=== PATIENT | female | born 1945 | race Caucasian/White ===

== ENCOUNTER 2024-05-19 06:42 | Emergency (ER) | payer OTHER ==
--- OUTSIDE RECORDS SUMMARY | 2024-05-19 06:48 | XMS REPORT | Continuity of Care Document ---
Author Name Unknown Address [address] [facility] [address] [place] [address] [facility] thconnect Address [address] [facility] [place] [address] Care Team Providers Care Cuff Stitcher Name Role Phone DR AUDRA HENDERSON Attending Clinician DR AUDRA Wells Attending Clinician Mack Vazquez Attending Clinician Carlos Denson Attending Clinician Unavailable COVID Employee, [place] Attending Clinician DR AUDRA Benitez Admitting Clinician Carlos Snider Admitting Clinician Unavailable Payers Payer Name Policy Type Policy Number Effective Date Expirati on Date Source [id number] [id number] 2022 00:00:00 0450 [id number] 1959 00:00:00 0737 [id number] 2022 00:00:00 Problems Condition Name Condition Details Condition Category Status Onset Date Resolution Date Last Treatment Date Treating Clinician Comments Source Fall Problem Active [facility] Allergies, Adverse Reactions, Alerts Allergy Name Allergy Type Status Severity Reaction(s) Onset Date Inactive Date Treating Clinician Comments Source No Allergy Informat ion Availseth e DA Active U 2020-11 0-03 00:00: 00 [facility] Jayla No Allergy Informat ion Availabl e DA Active U 1- 00:00: 00 [facility] Khoi No Known Drug Allergie s DA Active [facility] Social History Social Habit Start Date Stop Date Quantity Comments Source Sex Assigned At 1945 00:00:00 1945 00:00:00 Female [facility] Smoking Status Start Date Stop Date Source Unknown if ever smoked [facility] Medications Ordered Medication Name Filled Medication Name Start Date Stop Date Current Medication? Ordering Clinician Indication Dosage Frequency Signature (SIG) Comments Components Source Gabapentin 2020-11 06:29: 09 08-16 14:18 :35 No 100MG Daily [facility] Vital Signs Vital Name Observation Time Observation Value Comments S ource Height 2022-07-10 20:17:00 152.4 CM Weight 2022-07-10 20:17:00 68.03 KG Height 2022-07-10 20:17:00 152.4 CM Weight 2022-07-10 20:17:00 68.03 KG WEIGHT 2021-08-16 01:54:00 68.950638 kg HEIGHT 2021-08-16 01:54:00 152.4 cm WEIGHT 2021-08-16 01:45:00 68.451273 kg Procedures Procedure Date / Time Performed Performing Clinicia n Source XR Chest 1 View Portable 2021-10-10 08:13:[address] [facility] [address] Cervical Spine WO Con 2021-10-10 08:13:[address] [facility] [address] Pelvis WO Con 2021-10-10 08:13:[address] [facility] [address] Brain WO Con 2021-10-10 08:13:00 [facility] Encounters Start Date/Time End Date/Time Encounter Type Admission Type Attending Clinicians Care Facility Care Department Encounter ID Source 2022-07-10 23:13:00 2022-07-29 16:00:00 Inpatient E AUDRA HENDERSON [facility] [id number] [facility] 2022-07-10 23:13:00 2022-07-29 16:00:00 Inpatient E AUDRA HENDERSON [facility] [id number] [facility] 2021-10-10 08:01:00 2021-10-10 12:05:00 Emergency ER Mack Burris [facility] [id number] [facility] 2021-10-10 08:01:00 2021-10-10 12:05:00 Departed Emergency [id number] [facility] ERS [id number] [facility] 2021-08-15 23:34:00 2021-08-20 19:00:00 Inpatient ER Carlos Mittal [facility] [id number] [facility] 2020-12-25 09:52:00 2020-12-25 09:52:00 Outpatient R COVID Employee, [facility] [id number] [facility] 2020-11-26 10:08:00 2020-11-26 10:08:00 Outpatient R COVID Employee, [facility] [id number] [facility] Results Test Description Test Time Test Comments Results Result Co mments Source GLUCOMETER GLUCOSE- LAB USE [id number] 07:51:00* Test Item Value Reference Range Interpretation Comme nts GLUCOMETER (test code = GMG) 137 mg/dL 70-100 H CLEANED METERMet er ID: [id number]: [id number] [facility] CBC (INCLUDES AUTOMATED DIFFERENTIAL)2022-07-29 06:44:00* Test Item Value Reference Range Interpretation Comme nts WBC (test code = WBC) 6.9 10\\S\\3/uL 4.5-11.0 RBC (test code = RBC) 5.19 10\\S\\6/uL 3.80-5.80 HGB (test code = HBG) 13.9 g/dL 12.0-15.5 HCT (test code = HCT) 42.9 % 35.0-44.0 MCV (test code = MCV) 82.7 fL 81.0-99.0 MCH (test code = MCH) 26.8 pg 27.0-31.0 L MCHC (test code = MCHC) 32.4 g/dL 32.0-36.0 RDW (test code = RDW) 14.0 % 11.5-14.5 PLT (test code = PLT) 146 10\\S\\3/uL 130-400 MPV (test code = MPV) 10.9 fL 9.4-12.4 NEUTROP # (test code = NE#) 4.5 10\\S\\3/uL 1.6-8.0 LYMPH # (test code = LY#) 1.5 10\\S\\3/uL 1.1-3.5 MONOCYTE # (test code = MO#) 0.7 10\\S\\3/uL 0.0-1.1 EOSINOPH # (test code = EO#) 0.2 10\\S\\3/uL 0.0-0.7 BASOPHIL # (test code = BA#) 0.0 10\\S\\3/uL 0.0-0.3 IG # (test code = IG#) 0.01 10\\S\\3/uL 0.00-0.06 NRBC # (test code = NRBC#) 0.00 10\\S\\3/uL 0.00-0.01 NEUTROPH % (test code = NE%) 65.3 % 35.0-73.0 LYMPH % (test code = LY%) 21.6 % 20.0-55.0 MONO % (test code = MO%) 9.9 % 2.5-10.0 EOSINOPH % (test code = EO%) 3.1 % 0.0-5.0 BASOPHIL % (test code = BA%) 0.0 % 0.0-2.0 IG % (test code = IG%) 0.1 % 0.0-0.8 NRBC% (test code = NRBC%) 0.0 % 0.0-0.2 MANDIFF (test code = MDIFF) NO RBC MORPH (test code = RBCMOR) NORMAL COMPREHENSIVE METABOLIC [id number] 06:42:00* Test Item Value Reference Range Interpretation Comme nts GLUCOSE (test code = 06D) 137 mg/dL 75-100 H SODIUM (test code = 01A) 144 mmol/L 136-145 POTASSIUM (test code = 01B) 4.4 mmol/L 3.6-5.1 CHLORIDE (test code = 04A) 105 mmol/L 98-107 CO2 (test code = 02A) 29 mmol/L 20-31 ANION GAP (test code = ANG) 14.4 mmol/L BUN (test code = 05D) 21 mg/dL 9-23 CREATININE (test code = 03E) 0.9 mg/dL 0.6-1.0 GFR (test code = GFR) 62 mL/min/1.73m\\S\\2 See_Comment L [Automated message] The system which generated this result transmitted reference range: >=90. The reference range was not used to interpret this result as normal/abnormal. GFR (test code = GFRAA) 72 mL/min/1.73m\\S\\2 See_Comment L [Automated message] The system which generated this result transmitted reference range: >=90. The reference range was not used to interpret this result as normal/abnormal. EGFR (test code = EGFR) eGFR BY CKD-EPI CALCULATION IS NOT RECOMMENDED FOR PATIENTS UNDER 18 YEARS OF AGE. BUN/CREA (test code = BCR) 23 12-20 H CALCIUM (test code = 09D) 8.6 mg/dL 8.3-10.6 BILI TOTAL (test code = 11A) 0.4 mg/dL 0.2-1.0 PROTEIN (test code = 07D) 6.5 g/dL 5.7-8.2 ALBUMIN (test code = 08D) 4.2 g/dL 3.2-4.8 GLOBULIN (test code = GLB) 2.3 g/dL 1.5-3.8 ALB/GLOB (test code = AGRR) 1.8 1.0-2.6 ALK PHOS (test code = 35A) 76 IU/L 46-116 AST (test code = 30A) 20 IU/L See_Comment [Automated message] The system which generated this result transmitted reference range: <=33. The reference range was not used to interpret this result as normal/abnormal. ALT (test code = 31A) 21 IU/L 10-49 GLUCOMETER GLUCOSE- LAB USE [id number] 18:57:00* Test Item Value Reference Range Interpretation Comme nts GLUCOMETER (test code = GMG) 247 mg/dL 70-100 H CLEANED METERMet er ID: [id number]: 1235 TREMAINE MAICOL SARS-CoV (RAPID ANTIGEN)2022-07-28 18:24:00* Test Item Value Reference Range Interpretation Comme nts SARS-CoV (ANTIGEN) (test code = COVAG) NEGATIVE NEGATIVE COVID AG (test code = COVAGC) This test has been marketed under the FDA Emergency Use Authorization (EUA) to meet challenges of the COVID-19 pandemic. The validation standards normally enforced by the FDA and the [employer] of the [employer] (CAP) are more stringent than those required for this test. Therefore, the result should be interpreted with caution and close attention to other clinical and epidemiological data GLUCOMETER GLUCOSE- LAB USE [id number] 16:33:00* Test Item Value Reference Range Interpretation Comme nts GLUCOMETER (test code = GMG) 140 mg/dL 70-100 H CLEANED METERMet er ID: [id number]: 3912 FRANCOIS BURK GLUCOMETER GLUCOSE- LAB USE [id number] 11:28:00* Test Item Value Reference Range Interpretation Comme nts GLUCOMETER (test code = GMG) 129 mg/dL 70-100 H CLEANED METERMet er ID: [id number]: 4622 NAHEDRosa M CHARLES GLUCOMETER GLUCOSE- LAB USE [id number] 07:26:00* Test Item Value Reference Range Interpretation Comme nts GLUCOMETER (test code = GMG) 136 mg/dL 70-100 H Meter ID: [id number]: 6680 ADILENE AMBRIZ GLUCOMETER GLUCOSE- LAB USE [id number] 19:19:00* Test Item Value Reference Range Interpretation Comme nts GLUCOMETER (test code = GMG) 187 mg/dL 70-100 H CLEANED METERMet er ID: [id number]: 3831 ROGE OSBORNE GLUCOMETER GLUCOSE- LAB USE [id number] 16:34:00* Test Item Value Reference Range Interpretation Comme nts GLUCOMETER (test code = GMG) 134 mg/dL 70-100 H Meter ID: [id number]: 6680 ADILENE PB GLUCOMETER GLUCOSE- LAB USE [id number] 16:34:00* Test Item Value Reference Range Interpretation Comme nts GLUCOMETER (test code = GMG) 109 mg/dL 70-100 H CLEANED METERMet er ID: [id number]: 8413 JUAN DAVIDDIREVO [employer] GLUCOMETER GLUCOSE- LAB USE [id number] 07:50:00* Test Item Value Reference Range Interpretation Comme nts GLUCOMETER (test code = GMG) 139 mg/dL 70-100 H Meter ID: [id number]: 6680 [facility] GLU[facility]- LAB USE [id number] 00:19:00* Test Item Value Reference Range Interpretation Comme nts GLUCOMETER (test code = GMG) 214 mg/dL 70-100 H CLEANED METERMet er ID: [id number]: 1235 TREMAINE MAICOL GLUCOMETER GLUCOSE- LAB USE [id number] 00:19:00* Test Item Value Reference Range Interpretation Comme nts GLUCOMETER (test code = GMG) 158 mg/dL 70-100 H CLEANED METERMet er ID: [id number]: 3912 FRANCOIS RIVERAIGHT GLUCOMETER GLUCOSE- LAB USE [id number] 12:19:00* Test Item Value Reference Range Interpretation Comme nts GLUCOMETER (test code = GMG) 138 mg/dL 70-100 H CLEANED METERMet er ID: [id number]: 8413 JUAN DAVIDDIREVO [employer] GLUCOMETER GLUCOSE- LAB USE [id number] 07:44:00* Test Item Value Reference Range Interpretation Comme nts GLUCOMETER (test code = GMG) 114 mg/dL 70-100 H CLEANED METERMet er ID: [id number]: 8413 JUAN DAVID RANGEL GLUCOMETER GLUCOSE- LAB USE [id number] 19:15:00* Test Item Value Reference Range Interpretation Comme nts GLUCOMETER (test code = GMG) 258 mg/dL 70-100 H Meter ID: [id number]: 3883 ADAMS WANG GLUCOMETER GLUCOSE- LAB USE [id number] 16:21:00* Test Item Value Reference Range Interpretation Comme nts GLUCOMETER (test code = GMG) 145 mg/dL 70-100 H CLEANED METERMet er ID: [id number]: 4622 NAHED BREASTON GLUCOMETER GLUCOSE- LAB USE [id number] 11:01:00* Test Item Value Reference Range Interpretation Comme nts GLUCOMETER (test code = GMG) 151 mg/dL 70-100 H CLEANED METERMet er ID: [id number]: 4622 NAHED BREASTON GLUCOMETER GLUCOSE- LAB USE [id number] 08:25:00* Test Item Value Reference Range Interpretation Comme nts GLUCOMETER (test code = GMG) 130 mg/dL 70-100 H CLEANED METERMet er ID: [id number]: 4622 NAHED BREASTON GLUCOMETER GLUCOSE- LAB USE [id number] 20:45:00* Test Item Value Reference Range Interpretation Comme nts GLUCOMETER (test code = GMG) 242 mg/dL 70-100 H Meter ID: [id number]: 1235 TREMAINE MAICOL GLUCOMETER GLUCOSE- LAB USE [id number] 18:06:00* Test Item Value Reference Range Interpretation Comme nts GLUCOMETER (test code = GMG) 213 mg/dL 70-100 H Meter ID: [id number]: 4461 SYED BEEBE GLUCOMETER GLUCOSE- LAB USE [id number] 11:49:00* Test Item Value Reference Range Interpretation Comme nts GLUCOMETER (test code = GMG) 191 mg/dL 70-100 H CLEANED METERMet er ID: [id number]: 9397 LUNA LEVY GLUCOMETER GLUCOSE- LAB USE [id number] 07:39:00* Test Item Value Reference Range Interpretation Comme nts GLUCOMETER (test code = GMG) 140 mg/dL 70-100 H Meter ID: [id number]: 4461 SYED BONNERSON GLUCOMETER GLUCOSE- LAB USE [id number] 19:35:00* Test Item Value Reference Range Interpretation Comme nts GLUCOMETER (test code = GMG) 180 mg/dL 70-100 H CLEANED METERMet er ID: [id number]: 5538 YANNA ZAHIDA GLUCOMETER GLUCOSE- LAB USE [id number] 17:11:00* Test Item Value Reference Range Interpretation Comme nts GLUCOMETER (test code = GMG) 135 mg/dL 70-100 H CLEANED METERMet er ID: [id number]: 1235 TREMAINE MAICOL GLUCOMETER GLUCOSE- LAB USE [id number] 14:54:00* Test Item Value Reference Range Interpretation Comme nts GLUCOMETER (test code = GMG) 161 mg/dL 70-100 H CLEANED METERMet er ID: [id number]: 1235 TREMAINE MAICOL GLUCOMETER GLUCOSE- LAB USE [id number] 14:54:00* Test Item Value Reference Range Interpretation Comme nts GLUCOMETER (test code = GMG) 150 mg/dL 70-100 H Meter ID: [id number]: 4461 SYED BEEBE GLUCOMETER GLUCOSE- LAB USE [id number] 14:53:00* Test Item Value Reference Range Interpretation Comme nts GLUCOMETER (test code = GMG) 252 mg/dL 70-100 H CLEANED METERMet er ID: [id number]: 3549 SYLVESTER MAYOYO GLUCOMETER GLUCOSE- LAB USE [id number] 14:53:00* Test Item Value Reference Range Interpretation Comme nts GLUCOMETER (test code = GMG) 188 mg/dL 70-100 H CLEANED METERMet er ID: [id number]: 8605 ML BATTLES GLUCOMETER GLUCOSE- LAB USE [id number] 14:53:00* Test Item Value Reference Range Interpretation Comme nts GLUCOMETER (test code = GMG) 197 mg/dL 70-100 H Meter ID: [id number]: 8413 JUAN DAVID RANGEL GLUCOMETER GLUCOSE- LAB USE [id number] 14:52:00* Test Item Value Reference Range Interpretation Comme nts GLUCOMETER (test code = GMG) 137 mg/dL 70-100 H Meter ID: [id number]: 4461 SYED BEEBE GLUCOMETER GLUCOSE- LAB USE [id number] 14:52:00* Test Item Value Reference Range Interpretation Comme nts GLUCOMETER (test code = GMG) 168 mg/dL 70-100 H CLEANED METERMet er ID: [id number]: 1235 TREMAINE MAICOL GLUCOMETER GLUCOSE- LAB USE [id number] 14:52:00* Test Item Value Reference Range Interpretation Comme nts GLUCOMETER (test code = GMG) 178 mg/dL 70-100 H CLEANED METERMet er ID: [id number]: 8605 ML BATTLES GLUCOMETER GLUCOSE- LAB USE [id number] 14:51:00* Test Item Value Reference Range Interpretation Comme nts GLUCOMETER (test code = GMG) 155 mg/dL 70-100 H CLEANED METERMet er ID: [id number]: 6771 [employer] GLUCOMETER GLUCOSE- LAB USE [id number] 14:51:00* Test Item Value Reference Range Interpretation Comme nts GLUCOMETER (test code = GMG) 133 mg/dL 70-100 H CLEANED METERMet er ID: [id number]: 8605 ML BATTLES GLUCOMETER GLUCOSE- LAB USE [id number] 14:51:00* Test Item Value Reference Range Interpretation Comme nts GLUCOMETER (test code = GMG) 227 mg/dL 70-100 H CLEANED METERMet er ID: [id number]: 5538 [facility] ZAHIDA GLUCOMETER GLUCOSE- LAB USE [id number] 14:50:00* Test Item Value Reference Range Interpretation Comme nts GLUCOMETER (test code = GMG) 158 mg/dL 70-100 H CLEANED METERMet er ID: [id number]: 8413 JUAN DAVIDDIREVO [employer] GLUCOMETER GLUCOSE- LAB USE [id number] 14:50:00* Test Item Value Reference Range Interpretation Comme nts GLUCOMETER (test code = GMG) 180 mg/dL 70-100 H CLEANED METERMet er ID: [id number]: 8413 JUAN DAVID RANGEL GLUCOMETER GLUCOSE- LAB USE [id number] 14:49:00* Test Item Value Reference Range Interpretation Comme nts GLUCOMETER (test code = GMG) 106 mg/dL 70-100 H CLEANED METERMet er ID: [id number]: 6771 JERICA [employer] GLUCOMETER GLUCOSE- LAB USE [id number] 14:49:00* Test Item Value Reference Range Interpretation Comme nts GLUCOMETER (test code = GMG) 209 mg/dL 70-100 H CLEANED METERMet er ID: [id number]: 1235 TREMAINE MAICOL GLUCOMETER GLUCOSE- LAB USE [id number] 14:48:00* Test Item Value Reference Range Interpretation Comme nts GLUCOMETER (test code = GMG) 138 mg/dL 70-100 H CLEANED METERMet er ID: [id number]: 8413 JUAN DAVID [employer] GLUCOMETER GLUCOSE- LAB USE [id number] 14:48:00* Test Item Value Reference Range Interpretation Comme nts GLUCOMETER (test code = GMG) 266 mg/dL 70-100 H CLEANED METERMet er ID: [id number]: 5538 TARECIA ZAHIDA GLUCOMETER GLUCOSE- LAB USE [id number] 14:47:00* Test Item Value Reference Range Interpretation Comme nts GLUCOMETER (test code = GMG) 142 mg/dL 70-100 H CLEANED METERMet er ID: [id number]: 5538 TARECIA ZAHIDA GLUCOMETER GLUCOSE- LAB USE [id number] 14:46:00* Test Item Value Reference Range Interpretation Comme nts GLUCOMETER (test code = GMG) 183 mg/dL 70-100 H Meter ID: [id number]: 4461 SYED BEEBE GLUCOMETER GLUCOSE- LAB USE [id number] 14:46:00* Test Item Value Reference Range Interpretation Comme nts GLUCOMETER (test code = GMG) 267 mg/dL 70-100 H CLEANED METERMet er ID: [id number]: 6771 [facility] GLUCOSE- LAB USE [id number] 14:46:00* Test Item Value Reference Range Interpretation Comme nts GLUCOMETER (test code = GMG) 143 mg/dL 70-100 H Meter ID: [id number]: 4461 SYED BEEBE GLUCOMETER GLUCOSE- LAB USE [id number] 14:45:00* Test Item Value Reference Range Interpretation Comme nts GLUCOMETER (test code = GMG) 253 mg/dL 70-100 H CLEANED METERMet er ID: [id number]: 3831 ROGE [place] GLUCOMETER GLUCOSE- LAB USE [id number] 14:45:00* Test Item Value Reference Range Interpretation Comme nts GLUCOMETER (test code = GMG) 184 mg/dL 70-100 H CLEANED METERMet er ID: [id number]: 8605 ML BATTLES GLUCOMETER GLUCOSE- LAB USE [id number] 14:44:00* Test Item Value Reference Range Interpretation Comme nts GLUCOMETER (test code = GMG) 190 mg/dL 70-100 H Meter ID: [id number]: 4461 SYED BEEBE GLUCOMETER GLUCOSE- LAB USE [id number] 14:44:00* Test Item Value Reference Range Interpretation Comme nts GLUCOMETER (test code = GMG) 138 mg/dL 70-100 H Meter ID: [id number]: 3912 FRANCOIS VALDEZKNIGHT GLUCOMETER GLUCOSE- LAB USE [id number] 14:44:00* Test Item Value Reference Range Interpretation Comme nts GLUCOMETER (test code = GMG) 231 mg/dL 70-100 H CLEANED METERMet er ID: [id number]: 3831 ROGE [place]NE GLUCOMETER GLUCOSE- LAB USE [id number] 14:43:00* Test Item Value Reference Range Interpretation Comme nts GLUCOMETER (test code = GMG) 145 mg/dL 70-100 H Meter ID: [id number]: 4461 SYED BEEBE GLUCOMETER GLUCOSE- LAB USE [id number] 14:43:00* Test Item Value Reference Range Interpretation Comme nts GLUCOMETER (test code = GMG) 126 mg/dL 70-100 H CLEANED METERMet er ID: [id number]: 8605 ML BATTLES GLUCOMETER GLUCOSE- LAB USE [id number] 14:43:00* Test Item Value Reference Range Interpretation Comme nts GLUCOMETER (test code = GMG) 119 mg/dL 70-100 H CLEANED METERMet er ID: [id number]: 8605 ML BATTLES GLUCOMETER GLUCOSE- LAB USE [id number] 14:42:00* Test Item Value Reference Range Interpretation Comme nts GLUCOMETER (test code = GMG) 246 mg/dL 70-100 H CLEANED METERMet er ID: [id number]: 1235 TREMAINE MILIAN GLUCOMETER GLUCOSE- LAB USE [id number] 07:33:00* Test Item Value Reference Range Interpretation Comme nts GLUCOMETER (test code = GMG) 135 mg/dL 70-100 H Meter ID: [id number]: 4461 SYED BEEBE GLUCOMETER GLUCOSE- LAB USE [id number] 11:19:00* Test Item Value Reference Range Interpretation Comme nts GLUCOMETER (test code = GMG) 131 mg/dL 70-100 H Meter ID: [id number]: 6680 ADILENE MARTEFIELD GLUCOMETER GLUCOSE- LAB USE [id number] 07:58:00* Test Item Value Reference Range Interpretation Comme nts GLUCOMETER (test code = GMG) 117 mg/dL 70-100 H CLEANED METERMet er ID: [id number]: 8413 JUAN DAVID RANGEL GLUCOMETER GLUCOSE- LAB USE [id number] 19:19:00* Test Item Value Reference Range Interpretation Comme nts GLUCOMETER (test code = GMG) 246 mg/dL 70-100 H CLEANED METERMet er ID: [id number]: 8913 JADE NANCY GLUCOMETER GLUCOSE- LAB USE [id number] 16:16:00* Test Item Value Reference Range Interpretation Comme nts GLUCOMETER (test code = GMG) 183 mg/dL 70-100 H CLEANED METERMet er ID: [id number]: 6771 JERICA [employer] GLUCOMETER GLUCOSE- LAB USE [id number] 11:22:00* Test Item Value Reference Range Interpretation Comme nts GLUCOMETER (test code = GMG) 130 mg/dL 70-100 H CLEANED METERMet er ID: [id number]: 6771 JERICA [employer] GLUCOMETER GLUCOSE- LAB USE [id number] 08:06:00* Test Item Value Reference Range Interpretation Comme nts GLUCOMETER (test code = GMG) 133 mg/dL 70-100 H CLEANED METERMet er ID: [id number]: 6771 JERICA [employer] GLUCOMETER GLUCOSE- LAB USE [id number] 19:07:00* Test Item Value Reference Range Interpretation Comme nts GLUCOMETER (test code = GMG) 179 mg/dL 70-100 H Meter ID: [id number]: 1232 REX LUDWIG URINE [id number] 10:32:00* Test Item Value Reference Range Interpretation Comme nts Culture Observations (test code = COB1) THREE OR MORE SPECIES OF BACTERIA ISOLATED. PROBABLE CONTAMINATION. Culture Observations (test code = COB17) IDENTIFICATION AND SUSCEPTIBILITY NOT INDICATED. RECOLLECTION RECOMMENDED B12 [id number] 05:41:00* Test Item Value Reference Range Interpretation Comme nts VIT B12 (test code = A60) 272.0 pg/mL 211.0-911.0 [id number] 01:18:00* Test Item Value Reference Range Interpretation [facility]me [facility] FOLATE (test code = A75) 16.4 ng/mL See_Comment [Automated Novitaz] The system which generated this result transmitted reference range: >=5.5. The reference range was not used to interpret this result as normal/abnormal. THYROID PANEL/SCREEN (TSH)2022-07-11 01:17:00* Test Item Value Reference Range Interpretation Comme [facility] TSH (test code = A57) 0.784 uIU/mL 0.550-4.780 [id number] 01:07:00* Test Item Value Reference Range [facility]ation [facility] (test code = 08E) 28 mg/dL 10-40 LIPID [id number] 01:01:00* Test Item Value Reference Range Interpretation Comme [facility] CHOLESTROL (test code = 44A) 175 mg/dL 140-200 TRIGLYCERI (test code = 42B) 156 mg/dL See_Comment H [Automated Novitaz] The system which generated this result transmitted reference range: <=149. The reference range was not used to interpret this result as normal/abnormal. HDL (test code = 83D) 39.9 mg/dL 40.0-60.0 L LDL (test code = 34B) 116 mg/dL See_Comment H [A utomated message] The system which generated this result transmitted reference range: <=99. The reference range was not used to interpret this result as normal/abnormal. CHL/HDL (test code = CHR) 4.4 0.0-3.4 H [id number] 01:01:00* Test Item Value Reference Range Interpretation Comme nts MAGNESIUM (test code = 48A) 1.7 mg/dL 1.6-2.6 [id number] 01:00:00* Test Item Value Reference Range Interpretation Comme nts Hb A1C % (test code = HBA) 6.7 % 3.8-6.4 H A1C % (test code = A1C) HbA1c (% ) Reference Range Normal <5.7 Prediabetes 5.7-6.4 Diabetic >=6.5 [id number] 21:36:00* Test Item Value Reference Range Interpretation Comme nts SALICYLATE (test code = 94B) <3.0 mg/dL 15.0-30.[address] HEAD W/O [id number] 21:22:53 [facility] : 1945 Sex: FCT head without contrast 2CLINICAL HISTORY: Altered mental statusTECHNIQUE: Axial noncontrast CT images through the head were obtained. This examination was performed according to our departmental dose optimization program, which includes automated exposure control, adjustment of the mA and/or kV according to patient size, and/or use of iterative reconstruction technique.COMPARISON: None availableLOCATION: [id number]:There is no hemorrhage, extra-axial collection, mass, hydrocephalus, or midline shift. There are rare chronic-appearing microvascular changes. There is atherosclerotic calcification of the intracranial arterial vasculature. There is generalized parenchymal volume loss. The visualized paranasal sinuses and mastoid air cells are well aerated. There is a remote right frontal carlin hole.IMPRESSION:No intracranial hemorrhage or mass effect.If concern for acute pathology persists, further evaluation with MRI is recommended. Electronically signed by: Jhonny Summers MD 07/10/2022 9:22 PM CDT -XjG (RAPID ANTIGEN)2022-07-10 21:21:00* Test Item Value Reference Range Interpretation Comme nts SARS-CoV (ANTIGEN) (test code = COVAG) NEGATIVE NEGATIVE COVID AG (test code = COVAGC) This test has been marketed under the FDA Emergency Use Authorization (EUA) to meet challenges of the COVID-19 pandemic. The validation standards normally enforced by the FDA and the [employer] the [employer] ([employer]) are more stringent than those required for this test. Therefore, the result should be interpreted with caution and close attention to other clinical and epidemiological data COMPREHENSIVE METABOLIC [id number] 21:13:00* Test Item Value Reference Range Interpretation Comme nts GLUCOSE (test code = 06D) 163 mg/dL 75-100 H SODIUM (test code = 01A) 142 mmol/L 136-145 POTASSIUM (test code = 01B) 4.8 mmol/L 3.6-5.1 CHLORIDE (test code = 04A) 107 mmol/L 98-107 CO2 (test code = 02A) 28 mmol/L 20-31 ANION GAP (test code = ANG) 11.8 mmol/L BUN (test code = 05D) 19 mg/dL 9-23 CREATININE (test code = 03E) 1.0 mg/dL 0.6-1.0 GFR (test code = GFR) 55 mL/min/1.73m\\S\\2 See_Comment L [Automated message] The system which generated this result transmitted reference range: >=90. The reference range was not used to interpret this result as normal/abnormal. GFR (test code = GFRAA) 63 mL/min/1.73m\\S\\2 See_Comment L [Automated message] The system which generated this result transmitted reference range: >=90. The reference range was not used to interpret this result as normal/abnormal. EGFR (test code = EGFR) eGFR BY CKD-EPI CALCULATION IS NOT RECOMMENDED FOR PATIENTS UNDER 18 YEARS OF AGE. BUN/CREA (test code = BCR) 19 12-20 CALCIUM (test code = 09D) 8.9 mg/dL 8.3-10.6 BILI TOTAL (test code = 11A) 0.2 mg/dL 0.2-1.0 PROTEIN (test code = 07D) 6.7 g/dL 5.7-8.2 ALBUMIN (test code = 08D) 4.5 g/dL 3.2-4.8 GLOBULIN (test code = GLB) 2.2 g/dL 1.5-3.8 ALB/GLOB (test code = AGRR) 2.0 1.0-2.6 ALK PHOS (test code = 35A) 72 IU/L 46-116 AST (test code = 30A) 21 IU/L See_Comment [Automated message] The system which generated this result transmitted reference range: <=33. The reference range was not used to interpret this result as normal/abnormal. ALT (test code = 31A) 19 IU/L 10-49 AMYLASE AND [id number] 21:13:00* Test Item Value Reference Range Interpretation Comme nts AMYLASE (test code = 10A) 106 U/L 30-118 LIPASE (test code = 60A) 40 IU/L 12-53 [id number] 21:13:00* Test Item Value Reference Range Interpretation Comme nts ACETAMINPH (test code = 94M) <0.2 mg/dL 1.2-2.5 L AMMONIA [id number] 21:13:00* Test Item Value Reference Range Interpretation Comme nts AMMONIA (test code = 54A) <10 umol/L 11-32 L ALCOHOL BLOOD (ETOH)2022-07-10 21:10:00* Test Item Value Reference Range Interpretation Comme nts ETOH (test code = HALC) ETHANOL The result is to be used only for medical purposes ALCOHOL (test code = 56A) <10 mg/dL See_Comment [Automated messa ge] The system which generated this result transmitted reference range: <=10. The reference range was not used to interpret this result as normal/abnormal. URINALYSIS WITH [id number] 21:06:00* Test Item Value Reference Range Interpretation Comme nts COLOR (test code = COLU) YELLOW YELLOW CLARITY (test code = CLA) CLOUDY CLEAR A GLUCOSE UR (test code = UA GLUCOSE) NEGATIVE NEGATIVE BILI UR (test code = BILE) NEGATIVE NEGATIVE KETONES UR (test code = PB) NEGATIVE NEGATIVE SP GRAVITY (test code = SPGR) 1.018 1.005-1.030 PH UR (test code = PH) 6.0 4.5-8.0 PROTEIN UR (test code = PU) NEGATIVE NEGATIVE UROBIL UR (test code = UROQ) 0.2 EU/dL 0.2-1.0 NITRITE UR (test code = NITRITE) NEGATIVE NEGATIVE BLOOD UR (test code = UA BLOOD) NEGATIVE NEGATIVE LEUK ES UR (test code = LEUK) 2+ NEGATIVE A WBC UR (test code = UWBC) 11 /HPF 0-5 H RBC UR (test code = URBC) 0 /HPF 0-2 EPITH UR (test code = UEPC) FEW /LPF FEW BACTERIA UR (test code = UBACT) NONE /HPF NONE CAST UR (test code = CAST) /LPF NONE CRYSTAL UR (test code = CRYU) / LPF NONE MUCUS UR (test code = MUC) / HPF NONE AMORPH UR (test code = ALONSO) / HPF NONE TRICH UR (test code = UTRICH) /HPF NONE YEAST UR (test code = UY) /HPF NONE SPERM UR (test code = USPERM) /HPF NONE DRUGS OF [id number] 20:56:00* Test Item Value Reference Range Interpretation Comme nts DRUG SCRN (test code = HDOA) URINE DRUG SCREEN This is an unconfirmed screening result and should not be used for non-medical purposes CANNABINOD (test code = 88C) NEGATIVE NEGATIVE AMPHETAMINE (test code = 84A) NEGATIVE NEGATIVE BENZODIAZP (test code = 86A) NEGATIVE NEGATIVE BARBITURAT (test code = 85A) NEGATIVE NEGATIVE OPIATES (test code = 92B) NEGATIVE NEGATIVE COCAINE (test code = 87A) NEGATIVE NEGATIVE PHENCYCLID (test code = 66A) NEGATIVE NEGATIVE METHADONE (test code = 64A) NEGATIVE NEGATIVE DOAH (test code = DOAH.) URINE DRUGSCREEN Cut-off values are as follows: Cannabinoids 50 ng/mL Cocaine 300 ng/mL Amphetamines 1000 ng/mL Phencyclidine 25 ng/mL Benzodiazepines 200 ng.mL Methadone 300 ng/mL Barbiturates 200 ng/mL Opiates 300 ng/mL CBC (INCLUDES AUTOMATED DIFFERENTIAL)2022-07-10 20:52:00* Test Item Value Reference Range Interpretation Comme nts WBC (test code = WBC) 7.3 10\\S\\3/uL 4.5-11.0 RBC (test code = RBC) 5.00 10\\S\\6/uL 3.80-5.80 HGB (test code = HBG) 13.6 g/dL 12.0-15.5 HCT (test code = HCT) 40.7 % 35.0-44.0 MCV (test code = MCV) 81.4 fL 81.0-99.0 MCH (test code = MCH) 27.2 pg 27.0-31.0 MCHC (test code = MCHC) 33.4 g/dL 32.0-36.0 RDW (test code = RDW) 14.6 % 11.5-14.5 H PLT (test code = PLT) 157 10\\S\\3/uL 130-400 MPV (test code = MPV) 11.1 fL 9.4-12.4 NEUTROP # (test code = NE#) 4.5 10\\S\\3/uL 1.6-8.0 LYMPH # (test code = LY#) 1.9 10\\S\\3/uL 1.1-3.5 MONOCYTE # (test code = MO#) 0.7 10\\S\\3/uL 0.0-1.1 EOSINOPH # (test code = EO#) 0.2 10\\S\\3/uL 0.0-0.7 BASOPHIL # (test code = BA#) 0.0 10\\S\\3/uL 0.0-0.3 IG # (test code = IG#) 0.02 10\\S\\3/uL 0.00-0.06 NRBC # (test code = NRBC#) 0.00 10\\S\\3/uL 0.00-0.01 NEUTROPH % (test code = NE%) 61.0 % 35.0-73.0 LYMPH % (test code = LY%) 26.2 % 20.0-55.0 MONO % (test code = MO%) 10.2 % 2.5-10.0 H EOSINOPH % (test code = EO%) 2.2 % 0.0-5.0 BASOPHIL % (test code = BA%) 0.1 % 0.0-2.0 IG % (test code = IG%) 0.3 % 0.0-0.8 NRBC% (test code = NRBC%) 0.0 % 0.0-0.2 MANDIFF (test code = MDIFF) NO RBC MORPH (test code = RBCMOR) NORMAL XR CHEST 1 VIEW [id number] 20:02:50 [facility] : 1945 Sex: FEXAM: XR CHEST 1 VIEWLOCATION: [id number]: Psychotic disorderTECHNIQUE: AP view of the chestCOMPARISON: None available.FINDINGS:Midline sternotomy wires and mediastinal surgical clips are present.The trachea appears normal. The mediastinum and cardiac silhouette are within normal limits for size.Elevated right hemidiaphragm noted. Minimal atelectasis seen at the left lung base. No pleural effusions.The visualized upper abdomen and peripheral soft tissues are grossly unremarkable.IMPRESSION:No acute cardiopulmonary process.Electronically signed by: Abdielbindu Yeager DO 07/10/2022 8:02 PM CDT [id number] 08:36:00* Test Item Value Reference Range Interpretation Comme nts Chemistry (test code = NA-T) 140 mmol/L 136-145 N Chemistry (test code = K-T) 4.1 mmol/L 3.5-5.1 N Chemistry (test code = CL) 105 mmol/L 98-107 N Chemistry (test code = CO2) 25 mmol/L 23-31 N Chemistry (test code = ANGP) 14 mmol/L 10-20 N Chemistry (test code = BUN) 26 mg/dL 9.8-20.1 H Chemistry (test code = CREATT) 0.99 mg/dL 0.6-1.1 N Chemistry (test code = EGFRMDRD) 55 Reference Range for Estimated GFR: Greater than 90 mL/min/1.73 m2NOTE:The MDRD equation has not been validated for use with theelderly (over 70 years of age), women, patientswith serious comorbid condition or persons with extremes ofbody size, muscle mass, or nutritional status. Chemistry (test code = GLU-T) 113 mg/dL 83-110 H Chemistry (test code = CA) 8.8 mg/dL 7.8-10.44 N Chemistry (test code = TBILI-T) 0.7 mg/dL 0.2-1.2 N Chemistry (test code = TP) 6.9 g/dL 5.8-8.1 N Chemistry (test code = ALB) 4.0 g/dL 3.4-4.8 N Chemistry (test code = GLOB) 2.9 g/dL 2.4-3.5 N Chemistry (test code = AG) 1.4 g/dL 1.2-2.2 N Chemistry (test code = ALP) 59 U/L 40-110 N Chemistry (test code = AST) 22 U/L 5-34 N Chemistry (test code = ALT) 19 U/L 8-55 N [id number] 08:36:00* Test Item Value Reference Range Interpretation Comme nts Chemistry (test code = TROPI-R) Less than 0.010 ng/mL < 0.028 * Reference Range 0.00 - 0.028 ng/mL Negative 0.029 - 0.29 ng/mL Indeterminate Greater or Equal to 0.3 ng/mL Strongly suggests [facility] [id number] 08:28:00* Test Item Value Reference Range [facility]ation [facility] (test code = PT-T) 13.9 sec 12.0-14.7 N Coagulation (test code = INR) 1.1 ATTENTION: READ CAREFULLY The recommended therapeutic ranges for oral anticoagulanttreatments are: ------ Low Intensity: 1.5 - 2.0 Moderate Intensity: 2.0 - 3.0 High Intensity (1): 2.5 - 3.5 High Intensity (2): 3.0 - 4.0 CRITICAL: > 4.0 Anticoagulant? NONEMedical Necessity SUSPECT COAGULOPATHYAnticoagulant? NONEMedical Necessity: [id number] 08:28:00* Test Item Value Reference Range Interpretation [facility] Co[facility] (test code = PTT) 28.7 sec 22.9-36.1 N Anticoagulant? NONEMedical Necessity SUSPECT COAGULOPATHYAnticoagulant? NONEMedical Necessity: [id number] 08:23:00* Test Item Value Reference Range Interpretation [facility] H[facility]ology (test code = WBCT) 5.5 thou/uL 4.8-10.8 N Hematology (test code = RBCT) 4.83 mill/uL 4.20-5.40 N Hematology (test code = HGBT) 13.3 g/dL 12.0-16.0 N Hematology (test code = HCTT) 42.3 % 36.0-47.0 N Hematology (test code = MCV) 87.6 fL 78.0-98.0 N Hematology (test code = MCH) 27.7 pg 27.0-31.0 N Hematology (test code = MCHC) 31.6 g/dL 32.0-36.0 L Hematology (test code = RDW) 13.0 % 11.5-14.5 N Hematology (test code = PLTT) 143 thou/uL 130-400 N Hematology (test code = MPV) 7.8 fL 7.4-10.4 N Hematology (test code = %NEUT) 68.4 % 42.0-75.0 N Hematology (test code = %LYMPH) 20.1 % 21.0-51.0 L Hematology (test code = %MONO) 9.4 % 0.0-10.0 N Hematology (test code = %EOS) 1.6 % 0.0-10.0 N Hematology (test code = %BASO) 0.5 % 0.0-1.0 N Hematology (test code = NEUT#) 3.8 thou/uL 1.40-6.50 N Hematology (test code = LYMPH#) 1.1 thou/uL 1.20-3.40 L Hematology (test code = MONO#) 0.5 thou/uL 0.11-0.59 N Hematology (test code = EOS#) 0.1 thou/uL 0.0-0.7 N Hematology (test code = BASO#) 0.0 thou/uL 0.0-0.2 N Serum or plasma sodium measurement (moles/volume)2021-10-10 08:14:00* Test Item Value Reference Range Interpretation [facility] Sodium Level (test code = 2951-2) 140 mmol/L 136-145 [facility] or plasma potassium measurement (moles/volume) 2021-10-10 08:14:00* Test Item Value Reference Range Interpretation Comme nts Potassium Level (test code = 2823-3) 4.1 mmol/L 3.5-5.1 [facility] or plasma chloride measurement (moles/volume) 2021-10-10 08:14:00* Test Item Value Reference Range Interpretation [facility] Chloride Level (test code = 2075-0) 105 mmol/L 98-107 [facility] or plasma carbon dioxide, total measurement (moles/volume)2021-10-10 08:14:00* Test Item Value Reference Range Interpretation [facility] Carbon Dioxide Level (test c ode = 2027-9) 25 mmol/L 23-31 [facility] or plasma anion [id number] 08:14:00* Test Item Value Reference Range Interpretation [facility] Anion Gap (test code = 10900-5) 14 mmol/L 10-20 [facility] or plasma urea nitrogen measurement (mass/volume)2021-10-10 08:14:00* Test Item Value Reference Range Interpretation [facility] Blood Urea Nitrogen (test co de = 3094-0) 26 mg/dL 9.8-20.1 [facility] or plasma creatinine measurement (mass/volume) 2021-10-10 08:14:00* Test Item Value Reference Range Interpretation [facility] Creatinine (test code = 2160-0) 0.99 mg/dL 0.6-1.1 [facility]] in Serum or [id number] 08:14:00* Test Item Value Reference Range Interpretation [facility] Glucose Level (test code = 2345-7) 113 mg/dL 83-110 [facility] or plasma calcium measurement (mass/volume) 2021-10-10 08:14:00* Test Item Value Reference Range Interpretation [facility] Calcium Level (test code = 02028-9) 8.8 mg/dL 7.8-10.44 [facility] or plasma total bilirubin measurement (mass/volume)2021-10-10 08:14:00* Test Item Value Reference Range Interpretation [facility] Total Bilirubin (test code = 1975-2) 0.7 mg/dL 0.2-1.2 [facility] or plasma protein measurement (mass/volume) 2021-10-10 08:14:00* Test Item Value Reference Range Interpretation [facility] Serum Total Protein (test co de = 2885-2) 6.9 g/dL 5.8-8.1 [facility] or plasma albumin measurement by bromocresol green (BCG) dye binding method ([id number] 08:14:00* Test Item Value Reference Range Interpretation [facility] Albumin (test code = 78143-3) 4.0 g/dL 3.4-4.8 [facility] [[facility]/volume] in Serum by calculation 2021-10-10 08:14:00* Test Item Value Reference Range Interpretation Comme nts Globulin (test code = 98012-1) 2.9 g/dL 2.4-3.5 [facility] [Mass Ratio] in Serum or Plasma 2021-10-10 08:14:00* Test Item Value Reference Range Interpretation [facility] Albumin/Globulin Ratio (test code = 1759-0) 1.4 g/dL 1.2-2.2 [facility] phosphatase [Enzymatic activity/volume] in Serum or [id number] 08:14:00* Test Item Value Reference Range Interpretation [facility] Alkaline Phosphatase (test c ode = 6768-6) 59 U/L 40-110 [facility] or plasma aspartate aminotransferase measurement (enzymatic activity/volume)2021-10-10 08:14:00* Test Item Value Reference Range Interpretation [facility] Aspartate Amino Transf (AST/ SGOT) (test code = 1920-8) 22 U/L 5-34 [facility] or plasma alanine aminotransferase measurement without P-5'-P (enzymatic [id number] 08:14:00* Test Item Value Reference Range Interpretation Comme nts Alanine Aminotransferase (AL T/SGPT) (test code = 1744-2) 19 U/L 8-55 [facility] [#/volume] in Blood by Automated count 2021-10-10 08:14:00* Test Item Value Reference Range Interpretation Comme nts White Blood Count (test code = 6690-2) 5.5 thou/uL 4.8-10.8 [facility] erythrocytes automated count (number/volume) 2021-10-10 08:14:00* Test Item Value Reference Range Interpretation Comme nts Red Blood Count (test code = 789-8) 4.83 mill/uL 4.20-5.40 [facility] (mass/volume)2021-10-10 08:14:00* Test Item Value Reference Range Interpretation [facility] Hemoglobin (test code = 718-7) 13.3 g/dL 12.0-16.0 [facility] eryth[facility] mean corpuscular volume 2021-10-10 08:14:00* Test Item Value Reference Range Interpretation [facility] Mean Corpuscular Volume (catrina t code = 787-2) 87.6 fL 78.0-98.0 [facility] mean corpuscular hemoglobin (mass per erythrocyte)2021-10-10 08:14:00* Test Item Value Reference Range Interpretation [facility] Mean Corpuscular Hemoglobin (test code = 785-6) 27.7 pg 27.0-31.0 [facility] mean corpuscular hemoglobin concentration measurement (mass/[id number] 08:14:00* Test Item Value Reference Range Interpretation [facility] Mean Corpuscular Hemoglobin Concent (test code = 786-4) 31.6 g/dL 32.0-36.0 [facility] width ratio 2021-10-10 08:14:00* Test Item Value Reference Range Interpretation [facility] Red Cell Distribution Width (test code = 788-0) 13.0 % 11.5-14.5 [facility] platelet count (count/volume) 2021-10-10 08:14:00* Test Item Value Reference Range Interpretation [facility] Platelet Count (test code = 777-3) 143 thou/uL 130-400 [facility] mean [id number] 08:14:00* Test Item Value Reference Range Interpretation [facility] Mean Platelet Volume (test c ode = 65404-0) 7.8 fL 7.4-10.4 [facility] neutrophils/100 [id number] 08:14:00* Test Item Value Reference Range Interpretation [facility] Neutrophils % (test code = 770-8) 68.4 % 42.0-75.0 [facility]ymph[facility] leukocytes in Blood by Automated count 2021-10-10 08:14:00* Test Item Value Reference Range Interpretation [facility] Lymphocytes % (test code = 736-9) 20.1 % 21.0-51.0 [facility] monocytes/100 [id number] 08:14:00* Test Item Value Reference Range Interpretation [facility] Monocytes % (test code = 5905-5) 9.4 % 0.0-10.0 [facility] blood eosinophils/100 ulxcbkihxj9766-09-55 08:14:00* Test Item Value Reference Range Interpretation [facility] Eosinophils % (test code = 713-8) 1.6 % 0.0-10.0 [facility] blood basophils/100 [id number] 08:14:00* Test Item Value Reference Range Interpretation [facility] Basophils % (test code = 706-2) 0.5 % 0.0-1.0 [facility] neutrophils automated count (number/volume) 2021-10-10 08:14:00* Test Item Value Reference Range Interpretation [facility] Neutrophils # (test code = 751-8) 3.8 thou/uL 1.40-6.50 [facility]Lymph[facility] [#/volume] in Blood by Automated count 2021-10-10 08:14:00* Test Item Value Reference Range Interpretation [facility] Lymphocytes # (test code = 731-0) 1.1 thou/uL 1.20-3.40 [facility] monocytes automated count (number/volume) 2021-10-10 08:14:00* Test Item Value Reference Range Interpretation [facility] Monocytes # (test code = 742-7) 0.5 thou/uL 0.11-0.59 [facility] eosinophils automated count (count/volume) 2021-10-10 08:14:00* Test Item Value Reference Range Interpretation [facility] Eosinophils # (test code = 711-2) 0.1 thou/uL 0.0-0.7 [facility] blood basophil count (count/volume) 2021-10-10 08:14:00* Test Item Value Reference Range Interpretation Comme nts Basophils # (test code = 704-7) 0.0 thou/uL 0.0-0.2 [facility]Prothrombin time (PT) in platelet poor plasma by coagulation [id number] 08:14:00* Test Item Value Reference Range Interpretation [facility] Prothrombin Time (test code = 5902-2) 13.9 sec 12.0-14.7 [facility]R in Platelet poor plasma by Coagulation assay 2021-10-10 08:14:00* Test Item Value Reference Range Interpretation [facility] INR International Normalized Ratio (test code = 6301-6) 1.1 [facility] HospitalActivated partial thromboplastin time (aPTT) in platelet poor plasma by coagulation [id number] 08:14:00* Test Item Value Reference Range Interpretation Com[facility] Activated Partial Thrombopla st Time (test code = 77998-9) 28.7 sec 22.9-36.1 [facility], [id number] 08:10:00* Test Item Value Reference Range Interpretation [facility] Culture, Blood (test code = BC) Final report Blood Culture Result 08:10:00* Test Item Value Reference Range Interpretation [facility] Blood Culture Result 1 (test code = BCR1) No growth in 7 days. This blood culture arrived in a blood culture bottle thatis not compatible with our automated BactAlert system, andit must be processed manually. This manual processing isnot optimal and may result in delayed detection oforganisms. Please use the BactAlert bottles provided [facility].Performed at: [address] [id number] Director: Chas Viramontes MD, Phone: [phone] Molecular Testing [id number] 14:21:00* Test Item Value Reference Range Interpretation Comme nts Molecular Testing MM (test code = [id number]) Not Detected NotDetected Performance of t he Cepheid SARS-CoV-2 has only beenestablished in nasopharyngeal swab specimens. This testcannot rule out diseases caused by other bacterial or viralpathogens.Cepheid has been provided an FDA EUA that will be effectiveuntil the declaration that circumstances exist justifyingthe authorization of the emergency use of in vitrodiagnostic tests for detection and/or diagnosis ofCOVID-19 is terminated under Section 564(b)(2) of the Act orthe EUA is revoked under Section 564(g) of the Act. Resident in [facility]regate Care Setting: NoEmployed in Healthcare: NoFirst Test: YesHospitalized: YesICU: No: NoReason for Testing: Admission ScreeningSource: Nasopharyngeal SwabSymptomatic as defined by CDC: NoChemistry 2021-08-16 06:22:00* Test Item Value Reference Range Interpretation Comme nts Chemistry (test code = NA-T) 142 mmol/L 136-145 N Chemistry (test code = K-T) 4.0 mmol/L 3.5-5.1 N Chemistry (test code = CL) 108 mmol/L 98-107 H Chemistry (test code = CO2) 25 mmol/L 23-31 N Chemistry (test code = ANGP) 13 mmol/L 10-20 N Chemistry (test code = BUN) 18 mg/dL 9.8-20.1 N Chemistry (test code = CREATT) 0.77 mg/dL 0.6-1.1 N Chemistry (test code = EGFRMDRD) 73 Reference Range for Estimated GFR: Greater than 90 mL/min/1.73 m2NOTE:The MDRD equation has not been validated for use with theelderly (over 70 years of age), women, patientswith serious comorbid condition or persons with extremes ofbody size, muscle mass, or nutritional status. Chemistry (test code = GLU-T) 81 mg/dL 83-110 L Chemistry (test code = CA) 9.1 mg/dL 7.8-10.44 N Chemistry (test code = TBILI-T) 0.5 mg/dL 0.2-1.2 N Chemistry (test code = TP) 5.9 g/dL 5.8-8.1 N Chemistry (test code = ALB) 3.7 g/dL 3.4-4.8 N Chemistry (test code = GLOB) 2.2 g/dL 2.4-3.5 L Chemistry (test code = AG) 1.7 g/dL 1.2-2.2 N Chemistry (test code = ALP) 51 U/L 40-110 N Chemistry (test code = AST) 27 U/L 5-34 N Chemistry (test code = ALT) 22 U/L 8-55 N [id number] 06:03:00* Test Item Value Reference Range Interpretation Comme nts Hematology (test code = WBCT) 6.5 thou/uL 4.8-10.8 N Hematology (test code = RBCT) 4.05 mill/uL 4.20-5.40 L Hematology (test code = HGBT) 12.1 g/dL 12.0-16.0 N Hematology (test code = HCTT) 35.1 % 36.0-47.0 L Hematology (test code = MCV) 86.6 fL 78.0-98.0 N Hematology (test code = MCH) 29.8 pg 27.0-31.0 N Hematology (test code = MCHC) 34.5 g/dL 32.0-36.0 N Hematology (test code = RDW) 12.3 % 11.5-14.5 N Hematology (test code = PLTT) 147 thou/uL 130-400 N Hematology (test code = MPV) 8.3 fL 7.4-10.4 N Hematology (test code = %NEUT) 60.7 % 42.0-75.0 N Hematology (test code = %LYMPH) 26.9 % 21.0-51.0 N Hematology (test code = %MONO) 11.0 % 0.0-10.0 H Hematology (test code = %EOS) 1.2 % 0.0-10.0 N Hematology (test code = %BASO) 0.4 % 0.0-1.0 N Hematology (test code = NEUT#) 3.9 thou/uL 1.40-6.50 N Hematology (test code = LYMPH#) 1.7 thou/uL 1.20-3.40 N Hematology (test code = MONO#) 0.7 thou/uL 0.11-0.59 H Hematology (test code = EOS#) 0.1 thou/uL 0.0-0.7 N Hematology (test code = BASO#) 0.0 thou/uL 0.0-0.2 N Chemistry - [id number] 02:55:00* Test Item Value Reference Range Interpretation Comme nts Chemistry - Specials (test code = PROCALC) 0.06 ng/mL <0.5 ng/mL Repre sents a low risk of severe sepsis and/or septic shock>2 ng/mL Represents a high risk of severe sepsis and/or septic shock.Concentrations <0.5 ng/mL do not exclude an infection, onaccount of localized infections (without septic signs) whichcan be associated with such low concentrations, or asystemic infection in its initial stages (less than 6hours).Increased procalcitonin can occur without infection.Procalcitonin concentrations between 0.5 and 2.0 ng/mLshould be interpreted taking into account the patient'shistory. It is recommended to retest Procalcitonin within6-24 hours if any concentrations <2 ng/mL are obtained. [id number] 01:49:00* Test Item Value Reference Range [facility]ation [facility] (test code = PHOS-T) 3.6 mg/dL 2.3-4.7 N [id number] 01:49:00* Test Item Value Reference Range Interpretation [facility] Chemistry (test code = MG-T) 1.5 mg/dL 1.6-2.6 L Chemistry - [id number] 01:41:00* Test Item Value Reference Range Interpretation [facility] - Specials (test c ode = AMM) 21 umol/L 18-72 N [id number] 19:26:00* Test Item Value Reference Range [facility]ation [facility] Toxicology (test code = ULISES) Not Detected NotDetected Toxicology (test code = PCP) Not Detected NotDetected Toxicology (test code = COCN) Not Detected NotDetected Toxicology (test code = METHAMPU) Not Detected NotDetected Toxicology (test code = OPIA) Not Detected NotDetected Toxicology (test code = AMPHU) Not Detected NotDetected Toxicology (test code = BENSON) Not Detected NotDetected Toxicology (test code = TRICY) Not Detected NotDetected Toxicology (test code = MTD) Not Detected NotDetected Toxicology (test code = SIMÓN) Not Detected NotDetected Toxicology (test code = OXYCOD) Not Detected NotDetected Toxicology (test code = PPX) Not Detected NotDetected Toxicology (test code = MTCUTOFF) See_Comment The HashParade Profile-V Panel for Qualitative Drugs ofAbuse assays are for presumptive screening testing only.The drug class and detection limits are as follows:Drug Class Detection LimitAmphetamine 500 ng/mL*Barbiturates 200 ng/mLBenzodiazepines 150 ng/mL*Cocaine 150 ng/mL*Methamphetamine 500 ng/mL*Methadone 200 ng/mL*Opiates 100 ng/mL*Oxycodone 100 ng/mLPCP 25 ng/mLPropoxyphene 300 ng/mLTricyclic Antidepressants 300 ng/mLCannabinoids (THC) 50 ng/mLTests which yield a presumptive positive result must betested using a more specific alternate chemical method inorder to obtain a confirmed analytical result. Additionalconfirmation and identification may be ordered on a routinebasis, if desired. Presumptive positive urines are held fortwo weeks. [Automated message] The system which generated this result transmitted reference range: . The reference range was not used to interpret this result as normal/abnormal. Urine Source: Urine [id number] 19:23:00* Test Item Value Reference Range Interpretation Comme nts Urinalysis (test code = UACLR) Colorless Yellow Urinalysis (test code = UACLY) Clear Clear Urinalysis (test code = SPGR) 1.021 1.002-1.036 N Urinalysis (test code = RANDALL) 6.0 5.0-9.0 N Urinalysis (test code = UALEU) Negative Tariq/uL Negative Urinalysis (test code = UANIT) Negative Negative Urinalysis (test code = PROUADIP) Negative mg/dL Neg-Trace Urinalysis (test code = GLUCU) Normal mg/dL Negative Urinalysis (test code = KETU) Trace mg/dL Negative A Urinalysis (test code = UAUROB) Normal mg/dL Less than 2 Urinalysis (test code = UABIL) Negative Negative Urinalysis (test code = UABLD) Negative Negative Urine Source: Urine GyyayeLwtqnsbfi4181-71-00 17:59:00* Test Item Value Reference Range Interpretation Comme nts Chemistry (test code = TROPI-T) Less than 0.010 ng/mL < 0.028 * Reference Range 0.00 - 0.028 ng/mL Negative 0.029 - 0.29 ng/mL Indeterminate Greater or Equal to 0.3 ng/mL Strongly suggests [facility] Chemistry - Ldxwmtqj9469-08-74 15:41:00* Test Item Value Reference Range Interpretation Comme nts Chemistry - Specials (test c ode = TSH3) 0.3585 uIU/mL 0.35-4.94 N Npblpmxaq3661-57-22 15:39:00* Test Item Value Reference Range Interpretation Comme nts Chemistry (test code = TROPI-R) 0.039 ng/mL < 0.028 H Reference Range 0.00 - 0.028 ng/mL Negative 0.029 - 0.29 ng/mL Indeterminate Greater or Equal to 0.3 ng/mL Strongly suggests [facility] Chemistry (test code = TROPI-R) 0.039 ng/mL < 0.028 H Reference Range 0.00 - 0.028 ng/mL Negative 0.029 - 0.29 ng/mL Indeterminate Greater or Equal to 0.3 ng/mL Strongly suggests [facility] Owngnxcpp5408-76-79 15:39:00* Test Item Value Reference Range Interpretation Comme nts Chemistry (test code = CKMBM-T) 1.4 ng/mL 0-6.6 N Gmyyhraiv5195-95-92 15:19:00* Test Item Value Reference Range Interpretation Comme nts Chemistry (test code = NA-T) 140 mmol/L 136-145 N Chemistry (test code = K-T) 4.4 mmol/L 3.5-5.1 N Chemistry (test code = CL) 109 mmol/L 98-107 H Chemistry (test code = CO2) 22 mmol/L 23-31 L Chemistry (test code = ANGP) 13 mmol/L 10-20 N Chemistry (test code = BUN) 25 mg/dL 9.8-20.1 H Chemistry (test code = CREATT) 1.04 mg/dL 0.6-1.1 N Chemistry (test code = EGFRMDRD) 52 Reference Range for Estimated GFR: Greater than 90 mL/min/1.73 m2NOTE:The MDRD equation has not been validated for use with theelderly (over 70 years of age), women, patientswith serious comorbid condition or persons with extremes ofbody size, muscle mass, or nutritional status. Chemistry (test code = GLU-T) 79 mg/dL 83-110 L Chemistry (test code = CA) 8.7 mg/dL 7.8-10.44 N Chemistry (test code = TBILI-T) 0.5 mg/dL 0.2-1.2 N Chemistry (test code = TP) 6.4 g/dL 5.8-8.1 N Chemistry (test code = ALB) 3.7 g/dL 3.4-4.8 N Chemistry (test code = GLOB) 2.7 g/dL 2.4-3.5 N Chemistry (test code = AG) 1.4 g/dL 1.2-2.2 N Chemistry (test code = ALP) 53 U/L 40-110 N Chemistry (test code = AST) 29 U/L 5-34 N Chemistry (test code = ALT) 27 U/L 8-55 N Ypwcdjrrp0633-53-45 15:19:00* Test Item Value Reference Range Interpretation Comme nts Chemistry (test code = ACET-T) Less than 6.0 mcg/mL 10.0-30.0 L Therapeutic Range: 1 0.0 - 30.0 ug/mLToxic Range: Possible toxicity: 150 - 200 ug/mL Probable toxicity: Greater than 200 ug/mL*IMPORTANT TESTING INFORMATION* The half-life of NAC is 2 hours. The total NAC clearanceis 5.6 hours for adults and 11 hours for Newborns. Testing acetaminophen levels prior to a reasonable timeframe for clearance can cause falsely decreasedacetaminophen levels. Chemistry (test code = ETOH) Less than 10 mg/dL Less than 10 The pharmacological response to blood alcohol levels mayvary from individual to individual. Negative: Less than 10 mg/dL Toxic: 50 - 100 mg/dL Depression of ORE STORAGE DRIER: Greater than 100 mg/dL Fatalities reported: Greater than 400 mg/dL Chemistry (test code = SALCY) Less than 8.0 mg/dL 15.0-30.0 L Chemistry - [id number] 15:17:00* Test Item Value Reference Range Interpretation [facility] Chemistry - Lactate (test co de = LACTSEP-T) 0.9 mmol/L 0.5-2.2 N Qxsgnaddubf6050-75-53 15:17:00* Test Item Value Reference Range Interpretation [facility] Coagulation (test code = PT-T) 14.0 sec 12.0-14.7 N Coagulation (test code = INR) 1.1 ATTENTION: READ CAREFULLY The recommended therapeutic ranges for oral anticoagulanttreatments are: ------ Low Intensity: 1.5 - 2.0 Moderate Intensity: 2.0 - 3.0 High Intensity (1): 2.5 - 3.5 High Intensity (2): 3.0 - 4.0 CRITICAL: > 4.0 Anticoagulant? NONEMedical Necessity SUSPECT COAGULOPATHYAnticoagulant? NONEMedical Necessity: UXGRGBEEPwdvbaeehzi0057-02-71 15:17:00* Test Item Value Reference Range Interpretation [facility] Coagulation (test code = PTT) 28.5 sec 22.9-36.1 N Anticoagulant? NONEMedical Necessity SUSPECT COAGULOPATHYAnticoagulant? NONEMedical Necessity: QYQKYXYGHenvnzttdd6006-12-71 15:00:00* Test Item Value Reference Range Interpretation [facility] Hematology (test code = WBCT) 9.0 thou/uL 4.8-10.8 N Hematology (test code = RBCT) 4.17 mill/uL 4.20-5.40 L Hematology (test code = HGBT) 12.4 g/dL 12.0-16.0 N Hematology (test code = HCTT) 36.2 % 36.0-47.0 N Hematology (test code = MCV) 86.7 fL 78.0-98.0 N Hematology (test code = MCH) 29.8 pg 27.0-31.0 N Hematology (test code = MCHC) 34.4 g/dL 32.0-36.0 N Hematology (test code = RDW) 12.4 % 11.5-14.5 N Hematology (test code = PLTT) 152 thou/uL 130-400 N Hematology (test code = MPV) 7.9 fL 7.4-10.4 N Hematology (test code = %NEUT) 73.8 % 42.0-75.0 N Hematology (test code = %LYMPH) 16.4 % 21.0-51.0 L Hematology (test code = %MONO) 8.8 % 0.0-10.0 N Hematology (test code = %EOS) 0.9 % 0.0-10.0 N Hematology (test code = %BASO) 0.0 % 0.0-1.0 N Hematology (test code = NEUT#) 6.7 thou/uL 1.40-6.50 H Hematology (test code = LYMPH#) 1.5 thou/uL 1.20-3.40 N Hematology (test code = MONO#) 0.8 thou/uL 0.11-0.59 H Hematology (test code = EOS#) 0.1 thou/uL 0.0-0.7 N Hematology (test code = BASO#) 0.0 thou/uL 0.0-0.[address] Brain [facility]AANGIE : 1945 [facility]: [facility]A [address] [facility] Phys: [place] [address] : 1945 Age: 76 SEX:F [phone] Exam Date: 10/10/21 Status: REG ER Acct: [id number] Loc: [facility] Pt Unit #: [id number] Report #: [id number] CC: Victorino Burris DO CAT SCAN REPORT Order # Category/Exam [id number] CT/CT Brain WO Con ([id number]): . Results CT head without IV contrast: Multiple axial tomograms obtained through the head without IV enhancement. INDICATIONS: Fall with injury to head COMPARISON: CT head 08/15/2021 FINDINGS: Mildventriculomegaly which appears disproportionate to the degree of atrophy is again noted. No evidence of intracranial mass, hemorrhage, or infarct. Mild chronic ischemic white matter changes. 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 Paranasal sinuses and mastoids appear clear. Small scalp hematoma over the right frontal bone. Evidence of prior carlin hole in the right frontal bone is again noted. IMPRESSION: No acute finding Reported By: Enmanuel Vargas MD Electronically Signed Date/Time: 10/10/21842 Technologist: Dictated Date/Time: 10/10/2138 Transcribed Date/Time:CT Cervical Spine WO [facility] : 1945 [facility] Pt Name: SALLY MAGAÑA [address] [facility] Phys: [place] [address] : 1945 Age: 76 SEX:F [phone] Exam Date: 10/10/21 Status: REG ER Acct: [id number] Loc: [facility] Pt Unit #: [id number] Report #: [id number] CC: Victorino Burris DO CAT SCAN REPORT Order # Category/Exam [id number] CT/CT Cervical Spine WO Con ([id number]): . Results EXAM: CT of the cervical spine without contrast HISTORY: Fall with neck pain COMPARISON: 08/15/2021 TECHNIQUE: Multiple contiguous axial images were obtained in a CT of the cervical spine without contrast. Sagittal and coronal reformats were performed. FINDINGS: The vertebral bodies demonstrate normal height and alignment without fracture or subluxation. Moderate degenerative c hanges are seen in the lower cervical spine. No prevertebral soft tissue swelling is seen. The posterior facets are well aligned. Normal alignment of the skull base with the cervical spine is seen. The lung apices are unremarkable. Calcifications are seen in the carotid arteries. IMPRESSION: No evidence of acute osseous abnormality of the cervical spine. Reported By: Min Keating MD Electronically Signed Date/Time: 10/10/21842 Technologist: Dictated Date/Time: 10/10/21 0841 Transcribed Date/Time:CT Pelvis WO Con [facility] : 1945 [facility] Pt [facility]: [facility]ALLY [facility]A [address] [facility] Phys: [place] [address] : 1945 Age: 76 SEX:F [phone] Exam Date: 10/10/21 Status: REG ER Acct: [id number] Loc: [facility] Pt Unit #: [id number] Report #: [id number] CC: Victorino Burris DO CAT SCAN REPORT Order # Category/Exam [id number] CT/CT Pelvis WO Con ([id number]): . Results EXAM: CT pelvis without contrast: INDICATIONS: Injury to right hip COMPARISON: None. FINDINGS: Degenerative changes in the lower lumbar spine with degenerative disc changes prominent L3-4, L4-5, and L5-S1. Mild symmetric degenerative change at both hips. No evidence of acute fracture involving pelvis or hips. Soft tissues unremarkable. IMPRESSION: No acute finding Reported By: Enmanuel Vargas MD Electronically Signed Date/Time: 10/10/2151 Technologist: Dictated Date/Time: 10/10/21 0843 Transcribed Date/Time:XR Chest 1 View Portable [facility] : 1945 [facility] Pt Name: SALLY MAGAÑA [facility] Phys: FatumaVictor[place] [address] : 1945 Age: 76 SEX:F [phone] Exam Date: 10/10/21 Status: REG ER Acct: [id number] Loc: [facility] Pt Unit #: [id number] Report #: [id number] CC: Victorino Burris DO IMAGING SERVICES REPORT Order # Category/Exam [id number] RAD/XR Chest 1 View Portable ([id number]): . Results Portable chest: HISTORY: Fall with injury to hip. COMPARISON: No recent chest film. Correlation made to CT lower chest and abdomen 08/15/2021. FINDINGS:Rotation distorts the chest and limits the exam. Evidence of elevated left hemidiaphragm which is a new finding. Subpulmonic effusion not excluded. Lungs otherwise appear clear. Postop sternotomy changes again noted. IMPRESSION:Recommend repeat exam with better positioning. Evidence of elevated left hemidiaphragm is anew finding. Reported By: Enmanuel Vargas MD Electronically Signed Date/Time: 10/10/21912 Technologist: Dictated Date/Time: 10/10/21908 Transcribed Date/Time:XR Chest 1 View Portable [facility] : 1945 [facility] Pt Name: SALLY MAGA[facility]A [facility] Phys: [place] [address] : 1945 Age: 76 SEX:F [phone] Exam Date: 10/10/21 Status: REG ER Acct: [id number] Loc: [facility] Pt Unit #: [id number] Report #: [id number] CC: Victorino Burris DO IMAGING SERVICES REPORT Order # Category/Exam [id number] RAD/XR Chest 1 View Portable ([id number]): . Results ADDENDUM ADDENDUM #1 Addendum: Repeat portable exam was performed with more neutral positioning. The repeat exam now shows evidence of elevated right hemidiaphragm. This is stable when compared tothe CT scan of 08/15/2021. Mild bibasilar atelectasis is similar to the CT scan through the lung bases. Heart size appears normal with postop sternotomy changes. The earlier exam today may have been incorrectly labeled. IMPRESSION: Repeat portable exam of the chest appears stable when compared to CT scan of the chest and abdomen 08/15/2021. ReportedBy: Enmanuel Vargas Electronically Signed: 10/10/2021 11:10 AM ORIGINAL REPORT P ortable chest: HISTORY: Fall with injury to hip. COMPARISON: No recent chest film. Correlation madeto CT lower chest and abdomen 08/15/2021. FINDINGS:Rotation distorts the chest and limits the exam.Evidence of elevated left hemidiaphragm which is a new finding. Subpulmonic effusion not excluded. Lungs otherwise appear clear. Postop sternotomy changes again noted. IMPRESSION:Recommend repeat exam with better positioning. Evidence of elevated left hemidiaphragm is a new finding. Addendum Dictated By: Enmanuel Vargas MDAddotf Electronically Signed Date/Time: 10/10/21 1110 Technologist: Dictated Date/Time: 10/10/21 Transcribed Date/Time: / Business Objects: FLORES CC: Victorino Burris DO Portable chest:HISTORY: Fall with injury to hip. COMPARISON: No recent chest film. Correlation made to CT lower chest and abdomen 08/15/2021. FINDINGS:Rotation distorts the chest and limits the exam. Evidence of elevated left hemidiaphragm which is a new finding. Subpulmonic effusion not excluded. Lungs otherwise appear clear. Postop sternotomy changes again noted. IMPRESSION:Recommend repeat exam with better positioning. Evidence of elevated left hemidiaphragm is a new finding. Reported By: Enmanuel Wood lectronically Signed: 10/10/2021 9:13 AM Reported By: Enmanuel Vargas MD Electronically Signed Date/Time: 10/10/21912 Technologist: Dictated Date/Time: 10/10/21908 Transcribed Date/Time:CT Abdomen Pelvis Trauma [facility] SALLY [facility]A : 1945 [facility]: [facility]A [facility] [address] Phys: [place] [address] : 1945 Age: 76 SEX:F [phone] Exam Date: 08/15/21 Status: REG ER Acct: [id number] Loc: [facility] Pt Unit #: [id number] Report #: [id number] CC: ED TEMP Calista Navas CAT SCAN REPORT Order # Category/Exam [id number] CT/CT Abdomen Pelvis Trauma ([id number]): . Results CT ABDOMEN WITH CONTRAST CT PELVIS WITH CONTRAST: DATE: 08/15/2021 HISTORY: 76-year-old female status post acute trauma to abdomen and pelvis from fall COMPARISON: none TECHNIQUE:IV injection of iodinated contrast media: administered. 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 This mass appears to be solid. This lesion contains numerous tiny calcifications. There is a 1.5 cm exophytic cyst protruding from the left renal midpole posteriorly. No renal laceration or hydronephrosis. Distended but otherwise normal urinary bladder. No acute compression fracture of thoracic spine. Several levels of severe degenerative disc disease with scoliosis at the lumbar spine. No acute pelvic fracture or dislocation. Elevated right hemidiaphragm. No free fluid or pneumoperitoneum. No retroperitoneal hematoma. No small bowel dilation. No hepatic or splenic laceration. Unremarkable pancreas and adrenals. 12 mm densely calcified gallstone at the neck of the gallbladder. No acute cholecystitis. 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 Possibility of renal cell carcinoma. Recommend dedicated multiphase CT of abdomen with and without contrast, renal mass protocol, on a nonemergent basis. 3) cholelithiasis without acute cholecystitis. 4) severe lumbar spondylosis Reported By: Milton Jackson MD Electronically Signed Date/Time: 08/15/211652 Technologist: NHI Dictated Date/Time: 08/15/21 1644 Transcribed Date/Time:CT Brain WO Con [facility] : 1945 Sex: [facility] Pt Name: SALLY MAGAÑA [address] Phys: [place] [address] : 1945 Age: 76 SEX:F [phone] Exam Date: 08/15/21 Status:REG ER Acct: [id number] Loc: [facility] Pt Unit #: [id number] Report #: [id number] CC: ED TEMP PROVIDER Calista Gutierrez CAT SCAN REPORT Order # Category/Exam [id number] CT/CT Brain WO Con ([id number]): . Results CT BRAIN WITHOUT CONTRAST: HISTORY: Fall, head injury FINDINGS: No evidence of acute infarct, hemorrhage, midline shift or abnormal extra-axial fluid collections is seen. The ventricular size is appropriate and the basilar cisterns are patent. Postop changes of a right-sided carlin hole is seen. No acute calvarial fracture is identified. The visualized paranasal sinuses and mastoid air cells are well aerated. IMPRESSION: No CT evidence of acute intracranial process. Reported By: Zechariah Wilson MD Electronically Signed Date/Time: 08/15/21 1611 Technologist: NHI Dictated Date/Time: 08/15/21 1609 Transcribed Date/Time:CT Cervical Spine WO Con [facility]A : 1945 [facility] Pt Name: SALLY MAGAÑA [address] Phys: [place] [address] : 1945 Age: 76 SEX:F [phone] Exam Date: 08/15/21 Status:REG ER Acct: [id number] Loc: [facility] Pt Unit #: [id number] Report #: [id number] CC: ED TEMP PROVIDER Calista Gutierrez CAT SCAN REPORT Order # Category/Exam [id number] CT/CT Cervical Spine WO Con ([id number]): . Results CT CERVICAL SPINE WITH CORONAL AND SAGITTAL REFORMATIONS AND NO IV CONTRAST: HISTORY: Fall, neck pain FINDINGS: Multilevel degenerative changes are present. There is loss of cervical lordosis with mild reversal. No fracture, subluxation or facet malalignment is identified. No prevertebral soft tissue swelling is apparent. The visualized lung apices show calcified granulomas. IMPRESSION: No CT evidence for fracture or traumatic subluxation. Reported By: Zechariah Parralectronically Signed: 08/15/2021 4:14 PM Reported By: Zechariah Wilson MD Electronically Signed Date/Time: 08/15/211613 Technologist: NHI Dictated Date/Time: 08/15/21 161 Transcribed Date /Time:CT Facial Bones WO Con [facility] : 1945 [facility] Pt Name: S[facility]A [address] Phys: [place] [address] : 1945 Age: 76 SEX:F [phone] Exam Date: 08/15/21 Status: REG ER Acct: [id number] Loc: [facility] Pt Unit #: [id number] Report #: [id number] CC: ED TEMP PROVIDER Calista Gutierrez CAT SCAN REPORT Order # Category/Exam [id number] CT/CT Facial Bones WO Con ([id number]): . Results CT maxillofacial noncontrast: HISTORY: 76-year-old female status post acute facial trauma from fall FINDINGS: No fracture. Paranasal sinuses are clear except for mucosal thickening at floor right maxillary sinus. Orbits are clear. No hematoma identified. IMPRESSION: No fracture Reported By: Milton Jackson MD Electronically Signed Date/Time: 08/15/21 1640 Technologist: NHI Dictated Date/Time: 08/15/21 1627 Transcribed Date/Time: Notes Date/Time Note Provider Source 2021-08-21 14:20:00 [id number] [id number]:20:00[facility] Name: SALLY MAGAÑA [address] : 1945, Age: 76, Sex: [place] Paulino [address] Unit #: [id number], Status: DIS IN [phone] Location: [facility]G [facility]- Dictated by: Vinny Schaferr Admission Date: 08/15/21 Report #: [id number] Discharge Date: 08/20/21 CC: Vinny Schafer Robert A MD Unknown,Unknown DISCHARGE SUMMARY REPORT DATE OF ADMISSION: 08/15/2021 DATE OF DISCHARGE: 08/20/2021 RESIDENT: Vinny Schafer DO. ADMITTING PHYSICIAN: Ciarra Armstrong MD. DISCHARGING PHYSICIAN: Carlos Mittal MD. PROCEDURES: 1. 08/15/2021, CT of the brain: No CT evidence of acute intracranial process. 2. 08/15/2021, CT of the cervical spine: No evidence for fracture or traumatic subluxation. 3. 08/15/2021, facial bone CT significant for no fracture. 4. CT of the abdomen and pelvis 08/15/2021 significant for large complex regularly shaped 3.8 x 1.4 x 2.0 cm exophytic lesion protruding anteriorly from the anterior surface of the malrotated right kidney, appearing solid with numerous calcifications. Recommendation on report was a dedicated multiphase CT of the abdomen with and without contrast renal mass protocol on a nonemergent basis. Also found was cholelithiasis without acute cholecystitis and severe lumbar spondylosis. CONSULTATIONS: Palliative Care, Trini Sumner. PRIMARY DIAGNOSIS: Fall. SECONDARY DIAGNOSES: 1. Cholelithiasis without cholecystitis, with mass of the right renal kidney. 2. Delirium. 3. Indeterminate troponin. DISCHARGE MEDICATIONS: 1. Acetaminophen (Tylenol) regular strength 650 every 8 hours as needed. 2. Acetaminophen (Tylenol) suppository 650 mg rectal every 8 hours as needed. 3. Continue metformin 500 mg oral twice daily. 4. Continue pravastatin 20 mg oral at bedtime. 5. Continue bupropion 150 mg oral daily. 6. Continue venlafaxine 150 mg oral daily. 7. Continue meclizine 25 mg three times daily as needed. DISCONTINUED MEDICATIONS: 1. Hydrocodone. 2. Amlodipine 5 mg oral daily. 3. Lisinopril/hydrochlorothiazide 20-12.5 tablet. 4. Gabapentin 600 mg oral three times daily. HISTORY OF PRESENT ILLNESS/HOSPITAL COURSE: Ms. Magaña is a 76-year-old female with past medical history of hypertension, diabetes, chronic back pain, and heart valve replacement, who arrived via EMS after a fall at [facility]. She was found to be altered and was subsequently a poor historian in the ER. She was worked up fully for traumatic fall including CT of the head, neck, face, and abdomen. CT of the abdomen showed cholelithiasis without cholecystitis and incidental renal mass of the right kidney with recommendation to be followed up in the outpatient. Prior to her leaving, she started hallucinating and became severely altered, prompting her to be admitted. In the ED, she received 5 mg of Haldol after being combative with the staff. Over the course of her stay, she continued to be altered and requiring Haldol chemical restraint and soft physical restraints. Her CBC and BMP were within normal limits as was her urinalysis. Her UDS came back negative for any substances. On 08/19/2021, the patient was found to be more alert and oriented, no longer requiring physical restraints, was more cooperative with staff. The patient's home physician was contacted, and Wellbutrin and venlafaxine were started back as for her major depressive disorder. It was felt that her altered mental status is most likely secondary to the fall and a postconcussive syndrome. The waxing and waning status represented delirium with some elements of dementia which were not present at appointment with primary two months prior. The patient was found to be teary on 08/20/2021, having recollection of her sister who recently from COVID. Palliative Care was consulted, and she declined grief resources. She did, however, desire to have continued physical therapy and occupational therapy, and it was agreed upon that she should be discharged with continued care at [facility] at a halfway facility. DISPOSITION: Stable. DISCHARGE INSTRUCTIONS: 1. Location: [facility]. 2. Diet: Regular diet. 3. Activity: Activity as tolerated with assistance from PT and OT. 4. Follow up with Dr. Ling ([employer] TEACHER) in seven days for continued surveillance and workup regarding her AMS and right renal mass. Job ID: [id number] Dictated by: Vinny Schafer DO *r <Electronically signed by Vinny Schafer DO *r> 08/25/21 0516 <Electronically signed by Carlos Mittal MD> 08/25/212049 Dictated Date/Time: 08/23/212048 Transcribed Date/Time: 08/23/210 Business Objects: TANIA Garcia summaryDion CruzModalGarM*Fgdxu0428-33-48F70:20:00 DISCHARGE SUMMARY [id number] for patient Zackary AldrichSqxcxJRDVQCPALCGC0500-52-08T01:52:37 Vinny Schafer STLSJ[facility] 2021-08-20 14:03:00 [id number] liJE0dmNZZMxW174U QyOp/8Y6FFa0UElYc8J6/nLA0/nJw5O6/enLC kl0059-61-76P37:03:00[facility] Name: SALLY MAGAÑA [address] : 1945, Age: 76, Sex: LILLIE Paulino [address] Unit #: [id number], Status: ADM IN [phone] Location: SURG A 3338-P Report Dict : Trini Sumner Admission Date: 08/15/21 Report #: [id number] Discharge Date: CC: Palliative Care Follow-up Palliative Care Follow-up Note Patient niece Precious Maradiaga involved in patient's care. Plan for patient to transition to [address] Case management has initiated transfer request. Palliative care will sign off at this time as current discharge is been addressed, communicated withpatient. Please also refer to palliative care notes and notes <Electronically signed by Trini Sumner [facility]> 08/20/21 1404 CNConsultationCathy FlemingMjrvyvtctfEkffujykXofieoryoe8234-70-6 7T14:03:00Pallative Care Progress [id number] for patient Thu AndersonIkesmndbhcLXUDLFWPULON4601-76-32T95:0 5:40 Burak Trini STLSJ[facility] 2021-08-20 05:08:00 [id number]/X twZ1G3U6uh0PWjJqO 7xJm/yaxxtilbuNK7r1ViAZw6l9JwpY0YqpNg ZY3536-37-42X87:08:00[facility] Name: SALLY MAGAÑA [address] : 1945, Age: 76, Sex: LILLIE Paulino [address] Unit #: [id number], Status: DIS IN [phone] Location: SURG A 3338-P Report Dict : Vinny Schafer DO *r Admission Date: 08/15/21 Report #: [id number] Discharge Date: 08/20/21 CC: Family Medicine Progress Note - Subjective Subjective: AOx4 this morning. States she has pain in her neck and back. states it is 5/10 and hard to be comfortable. She denies nausea vomiting, constipation. She does note she has been feeling sad. Otherwise, she states she has not been hallucinating. Per staff she is passing stool but last stooling noted to be hard. Pt has not been in restraints, comfortable no combativeness. - Objective Vital Signs Weight: Vital Signs (12 hours) Temp Pulse Resp BP Pulse Ox 08/20/21 04:21 98.3 F 86 18 117/75 91 L 08/19/21 23:12 98.8 F 94 18 107/71 90 L 08/19/21 20:10 95 08/19/21 19:59 98.3 F 104 H 18 132/83 95 Weight Weight 68.492 kg I O: 08/18/21 08/19/21 08/20/21 06:59 06:59 06:59 Intake Total 632 146 3346 Balance 146 111 8142 Result Diagrams: 08/16/21 05:31 08/16/21 05:31 Phys Exam - Physical Examination Constitutional: NAD HEENT: PERRLA, moist MMs Neck: supple tender to palpation Respiratory: clear to auscultation bilateral Cardiovascular: RRR, no significant murmur, no rub Gastrointestinal: soft, non-tender, positive bowel sounds Musculoskeletal: pulses present Neurological: moves all 4 limbs Psychiatric: normal affect, A O x 3 Deviation from normal: Mood "Happy to see everyone" Dx/Plan - Plan Plan: Encephalopathy 2/2, Likely multifactiorial 2-2 concussion and depression -pt mentation has improved drastically back to baseline seen 2 months ago seen with Dr Oates -given improvement, paraneoplastic etiology unlikley -recent acute stress may contribute to reduced cognition -pt has been without restraints and non-combative plan to continue -CM following for placement with manor Visual hallucinations and delusional thoughts,resolved - no SI or HI - no hallucinations today Neck Pain 2-2 fall - give tylenol now, pt had not been requesting prn Indeterminant trop -resolved -EKG Mass of right kidney possibly RCC -Curbsided Nephro regarding workup. -New diagnosis to patient -f/u as outpatient Cholelithiasis without cholecystitis. - stable; asymptomatic - CTM F: SL E: No electrolytes N: HH A: Ambulate with assist P: [place], fall, delirium precautions VTE ppx: SCD's GI ppx: None PCP: ZAY Ling Code: Full Disposition: Pt awaiting placement with manor. Mentation back to baseline, seen two months prior, attimes teary due to recent but medically stable for discharge. Addendum - Attending - Attending Attestation Date/Time: 09/17/21714 I personally evaluated the patient and discussed the management with Dr. Schafer on 08/20/21. I agree with the History, Examination, Assessment and Plan documented above with any addition or exceptions noted below. <Electronically signed by Vinny Schafer DO> 08/20/21810 <Electronically signed by Carlos Mittal MD> 09/17/21722 PRProcedure Rod Mejiardi2021-10-07T05:08:00Fam jennifer Medician Progress [id number] for patient Valdemar HfmocTLVRIKOFCSAD2354-56-83T34:26:16 Vinny Schafer STLSJ[facility] 2021-08-19 05:49:00 [id number] X2gHsQYhMM4lj/WnH BDKDB5V52hDPI/i0m+k6oZqXPZgkNvkN9tjx7 zk2758-18-97R38:49:00[facility] Name: SALLY MAGAÑA [address] : 1945, Age: 76, Sex: F [place] [address] Unit #: [id number], Status: DIS IN [phone] Location: SURG A [facility]8- Report Dict : Vinny Schafer DO *r Admission Date: 08/15/21 Report #: [id number] Discharge Date: 08/20/21 CC: Family Medicine Progress Note - Subjective Subjective: AO to person, but not to place or time. Pt reportedly was not needing restraints this PM. Denies chest pain sob,n+V. Pt states she is looking forward to continued therapy. per nursing improved with seroquel. - Objective MAR Reviewed: Yes Vital Signs Weight: Vital Signs (12 hours) Temp Pulse Resp BP Pulse Ox 08/19/21 04:05 98.0 F 89 14 145/82 H 96 08/19/21 00:00 98.3 F 87 14 143/84 H 98 08/18/21 20:00 99.5 F 90 14 132/86 97 Weight Weight 68.492 kg I O: 08/17/21 08/18/21 08/19/21 06:59 06:59 06:59 Intake Total 650 420 Balance 650 420 Result Diagrams: 08/16/21 05:31 08/16/21 05:31 Phys Exam - Physical Examination Intense stare at baseline HEENT: PERRLA, moist MMs, sclera anicteric Respiratory: no wheezing, no rales, no rhonchi, clear to auscultation bilateral Cardiovascular: RRR, no significant murmur, no rub Gastrointestinal: soft, non-tender, no distention Neurological: non-focal, moves all 4 limbs Dx/Plan - Plan Plan: Encephalopathy 2/2 unknown cause (concussion vs. paraneoplastic syndrome vs. infection vs Dementia vs psychiatric condition) -pt not alert to place or time, reoriented -pt reportedly AOx3 2 months ago at primary office -not actively hallucinating, clinically mental status appears improved, -pt states she is ok with custodial to discuss placement with family -blood cult prelim result negative so far (due to labcore delay) -spoke with dr oates yesterday, restarted pt home venlafaxine and wellbutrin plan to continue -CM following for placement with [facility]or Visual hallucinations and delusional thoughts,improved - no SI or HI - no hallucinations today plan to - consider Soft physical restraints if delirium returns - Haldol chemical restraint Indeterminant trop -resolved -EKG Mass of right kidney possibly RCC -Curbside Nephro regarding workup. -New diagnosis to patient -f/u as outpatient Cholelithiasis without cholecystitis. - stable; asymptomatic - CTM F: SL E: No electrolytes N: Bedside swallow, if passes then HH A: Ambulate with assist P: [place], fall, delirium precautions VTE ppx: SCD's GI ppx: None PCP: CC - unknown Code: Full Disposition: Pt awaiting placement with [facility]or. Mentation improved Addendum - Attending - Attending Attestation Date/Time: 09/17/21 0706 I personally evaluated the patient and discussed the management with Dr. Schafer on 08/19/21. I agree with the History, Examination, Assessment and Plan documented above with any addition or exceptions noted below. <Electronically signed by Vinny Schafer DO> 08/19/21 0808 <Electronically signed by Carlos Mittal MD> 09/17/21 0723 PRProcedure noteCHRISGilmar VgrunVwzsnBrahy2471-94-23X54:49:00Fam jennifer Medician Progress [id number] for patient Zackary AldrichHubmcCHVUNNPBTTAD7525-03-71M73:25:44 Vinny Schafer STLSJ[facility] 2021-08-18 05:23:00 [id number] 2ewv0nacrsHlVPrfz wJYFga4/8MTqKQ91OOQRuG8vVsrGbNgZa4GAa QP5329-51-86N68:23:00[facility] Name: SALLY MAGAÑA [address] : 1945, Age: 76, Sex: LILLIE Paul[place] [address] Unit #: [id number], Status: DIS IN [phone] Location: SURG A [facility] Report Dict DrYasmine: Vinny Schafer DO *r Admission Date: 08/15/21 Report #: [id number] Discharge Date: 08/20/21 CC: Family Medicine Progress Note - Subjective Subjective: Alert and oriented to person, place, but not to time. States she is seeing [employer] for the kidsaround her. Denies chest pain, sob, nausea vomiting. Per conversation with niece yesterday she was worsening with mentation over the past 2-3 years. Past15 years she has had memory issues, but was to her knowledge intact in ADLs. Pt denies hx of schizophrenia, reports she takes antidepressants and " other niece does not know meds Per nursing less combative, but still appears scared, pulling at IV lines, delirious - Objective MAR Reviewed: Yes Vital Signs Weight: Vital Signs (12 hours) Temp Pulse Resp BP Pulse Ox 08/17/21 20:52 98.7 F 104 H 16 129/80 96 08/17/21 18:45 93 L Weight Weight 68.492 kg I O: 08/16/21 08/17/21 08/18/21 06:59 06:59 06:59 Intake Total 650 Balance 650 Result Diagrams: 08/16/21 05:31 08/16/21 05:31 Phys Exam - Physical Examination Constitutional: NAD Intense stare, appears scare, grabbing at bedrail HEENT: PERRLA MM dry Neck: supple, full ROM Respiratory: clear to auscultation bilateral Cardiovascular: RRR, no significant murmur, no rub Gastrointestinal: soft, non-tender, no distention, positive bowel sounds Musculoskeletal: pulses present Neurological: normal sensation, moves all 4 limbs Skin: cap refill <2 seconds Dx/Plan - Plan Plan: Encephalopathy 2/2 unknown cause (concussion vs. paraneoplastic syndrome vs. infection vs Dementia vs psychiatric condition) -waxing waning mentation, improved today -pt states she is ok with custodial to discuss placement with family -blood cult prelim result negative so far plan to continue - will call nivalerie regarding placement - Soft physical restraints, deescalate as indicated - Haldol chemical restraint -CM following -neice provided DPA not MPOA, reportedly thought she sent advanced directive and MPOA - Nursing to perform med rec by trying to call pt's pharmacy. Appreciate assistance. Visual hallucinations and delusional thoughts, stable - no SI or HI - MHMR consulted; will appreciate more insight into this matter; awaiting recs - Delirium precautions - Soft physical restraints - Haldol chemical restraint Indeterminant trop -resolved -EKG Mass of right kidney possibly RCC -Curbside Nephro regarding workup. -New diagnosis to patient -f/u as outpatient Cholelithiasis without cholecystitis. - stable; asymptomatic - CTM F: SL E: No electrolytes N: Bedside swallow, if passes then HH A: Ambulate with assist P: [place], fall, delirium precautions VTE ppx: SCD's GI ppx: None PCP: CC - unknown Code: Full Disposition: Awaiting [facility] recs; will continue to do further work up to find source of patients AMS. -CM following ,Appreciate assistance. -Nursing to try and track down pt's pharmacy for med rec. Appreciate assistance. Addendum - Attending - Attending Attestation Date/Time: 09/17/21 0641 I personally evaluated the patient and discussed the management with Dr. Schafer on 08/18/21. I agree with the History, Examination, Assessment and Plan documented above with any addition or exceptions noted below. <Electronically signed by Vinny Schafer DO> 08/18/21 0857 <Electronically signed by Carlos Mittal MD> 09/17/21 0648 PRProcedure noteGATALLISONGilmar OratsPmvbfJbqfk3790-48-85J79:23:00Fam jennifer Medician Progress [id number] for patient Valdemar AqnbdWPRECNNBBKMV5072-77-40Z43:50:59 Vinny Schafer STLSJ[facility] 2021-08-17 06:04:00 [id number] v8R4f5d/0lahcJOQN nKTf31s89HAAmfBeTA0Am4o+QlRceujils2Xr za1517-09-56R77:04:00[facility] Name: SALLY MAGAÑA [address] : 1945, Age: 76, Sex: LILLIE Paulino [address] Unit #: [id number], Status: DIS IN [phone] Location: SURG A [facility]8- Report Dict : Vinny Schafer DO *r Admission Date: 08/15/21 Report #: [id number] Discharge Date: 08/20/21 CC: Family Medicine Progress Note - Subjective Subjective: AO to person only. Inappropriate speech this am. denies nausea, vomiting, diarrhea, constipation, in4 point restraints. hallucinating per nursing - Objective Vital Signs Weight: Vital Signs (12 hours) Temp Pulse Resp BP Pulse Ox 08/17/21 04:52 93 L 08/17/21 03:41 98.2 F 90 16 148/79 H 93 L 08/16/21 22:01 98.3 F 16 L 18 126/70 94 L Weight Weight 68.492 kg Result Diagrams: 08/16/21 05:31 08/16/21 05:31 Phys Exam - Physical Examination Constitutional: NAD HEENT: PERRLA Respiratory: no wheezing, no rales, no rhonchi, wheezing present, clear to auscultation bilateral Cardiovascular: RRR, no significant murmur, no rub Gastrointestinal: soft, non-tender, no distention, positive bowel sounds Musculoskeletal: no edema, pulses present Dx/Plan - Plan Plan: Encephalopathy 2/2 unknown cause (concussion vs. paraneoplastic syndrome vs. infection vs Dmentia vspsychiatric condition) - Upon admission UA negative, CT head and neck were negative, CBC and CMP WNL. - patient s/p fall could possibly have TBI or be concussed; will continue to monitor - CT abdomen and pelvis found possible mass, may be causing paraneoplastic syndrome - Systolic murmur noted on physical exam, need to r/o endocarditis, patient reports hx of valvular replacement (unknown which valve and when). - Patient has no previous psych history; cannot rule out however - BCx - Echo 55-60% EF, mild tricuspid regurg, LA moderately enlarged - pt today AOx1 plan to continue - Soft physical restraints - Haldol chemical restraint - Consult CM, pt's history and family are unknown. Appreciate assistance. -[place] consulted and is bringing will. plan to reach out to her today. - Nursing to perform med rec by trying to call pt's pharmacy. Appreciate assistance. Visual hallucinations and delusional thoughts, stable - [facility] consulted; will appreciate more insight into this matter; awaiting recs - Delirium precautions - Soft physical restraints - Haldol chemical restraint Indeterminant trop -resolved -EKG Mass of right kidney possibly RCC -Curbside Nephro regarding workup. -New diagnosis to patient -f/u as outpatient Cholelithiasis without cholecystitis. - stable; asymptomatic - CTM F: SL E: No electrolytes N: Bedside swallow, if passes then HH A: Ambulate with assist P: [place], fall, delirium precautions VTE ppx: SCD's GI ppx: None PCP: CC - unknown Code: Full Disposition: Observation; awaiting [facility] recs; will continue to do further work up to find source of patients AMS. -CM to try and track down family member to call for further history. Appreciate assistance. -Nursing to try and track down pt's pharmacy for med rec. Appreciate assistance. Addendum - Attending - Attending Attestation Date/Time: 09/17/21627 I personally evaluated the patient and discussed the management with Dr. Schafer on 08/17/21. I agree with the History, Examination, Assessment and Plan documented above with any addition or exceptions noted below. <Electronically signed by Vinny Schafer DO> 08/17/21927 <Electronically signed by Carlos Mittal MD> 09/17/2148 PRProcedure Rod Mejiardi2021-10-04T06:04:00Sethm jennifer Medician Progress [id number] for patient Ras AldrichIhquzHTDKXDLNNNQR2228-88-49R32:49:56 Vinny Schafer STLSJ[facility] 2021-08-16 08:22:00 [id number]+1pK5 0di21FeZ8Nx/RSvT0 npuhe61Z42CAVIUyKCVAexEitDfJghdTrYMn0 Xt6147-82-28Z79:22:00[facility] Name: SALLY MAGAÑA [address] : 1945, Age: 76, Sex: LILLIE Paul[place] [address] Unit #: [id number], Status: DIS IN [phone] Location: SURG A [facility]8- Report Dict DrYasmine: Adalberto Nicholas DO *r Admission Date: 08/15/21 Report #: [id number] Discharge Date: 08/20/21 CC: Family Medicine Progress Note - Subjective Subjective: Subjective history is limited 2/2 AMS. Pt oriented to self alone. Disoriented to place and time. Pt appears comfortable. Pt is pleasant and not agitated. ROS limited 2/2 AMS. - Objective MAR Reviewed: Yes Vital Signs Weight: Vital Signs (12 hours) Temp Pulse Resp BP BP Pulse Ox 08/16/21 05:09 98.1 F 74 18 105/66 92 L 08/16/21 01:14 98.3 F 76 18 102/67 92 L 08/16/21 00:50 98.4 F 76 18 102/67 92 L Weight Weight 68.492 kg Result Diagrams: 08/16/21 05:31 08/16/21 05:31 Phys Exam - Physical Examination Constitutional: NAD pt appears comfortable HEENT: PERRLA, moist MMs, sclera anicteric Bruises overlying L infraorbital face, L upper lip swollen with abrasion Neck: no nodes, no JVD, full ROM Respiratory: no wheezing, no rales, no rhonchi, clear to auscultation bilateral Cardiovascular: RRR systolic murmur Gastrointestinal: soft, no distention, positive bowel sounds bruise overlying LLQ ABD, mild tender overlying LLQ bruise No peritoneal signs Musculoskeletal: no edema, pulses present hips stable and nontender to rocking Neurological: non-focal, normal sensation, moves all 4 limbs Cranial nerves II-XII intact. Exam limited 2/2 AMS Deviation from normal: Alert, oriented to self alone, pleasant, not agitated Pt receiving physical and chemical restraints Skin: normal turgor, cap refill <2 seconds Deviation from normal: See above for trauma related changes Dx/Plan - Plan Plan: Encephalopathy 2/2 unknown cause (concussion vs. paraneoplastic syndrome vs. infection vs psychiatric condition) - Upon admission UA negative, CT head and neck were negative, CBC and CMP WNL. 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 - Patient has no previous psych history; cannot rule out however - BCx - MRI, Echo - Bedside swallow prior to HH diet - Monitor VS, CBC qAN, and CMP qAM - Soft physical restraints - Haldol chemical restraint - Consult CM, pt's history and family are unknown. Appreciate assistance. - Nursing to perform med rec by trying to call pt's pharmacy. Appreciate assistance. Visual hallucinations and delusional thoughts, improved - [facility] consulted; will appreciate more insight into this matter; awaiting recs - Delirium precautions - Soft physical restraints - Haldol chemical restraint Indeterminant trop -resolved -EKG Mass of right kidney possibly RCC -Curbside Nephro regarding workup. -New diagnosis to patient Cholelithiasis without cholecystitis. - stable; asymptomatic - CTM F: SL E: No electrolytes N: Bedside swallow, if passes then HH A: Ambulate with assist P: [place], fall, delirium precautions VTE ppx: SCD's GI ppx: None PCP: CC - unknown Code: Full Disposition: Observation; awaiting [facility] recs; will continue to do further work up to find source of patients AMS. -CM to try and track down family member to call for further history. Appreciate assistance. -Nursing to try and track down pt's pharmacy for med rec. Appreciate assistance. Addendum - Attending - Attending Attestation Date/Time: 09/15/21737 I personally evaluated the patient and discussed the management with Dr. Nicholas on 08/16/21 I agree with the History, Examination, Assessment and Plan documented above with any addition or exceptions noted below. <Electronically signed by Adalberto Nicholas > 08/16/21843 <Electronically signed by Carlos Mittal MD> 09/15/21 0744 PRProcedure noteRafi GonzalesNdmtyQagnyVbdsh8576-00-05X33:22:00Fam jennifer Medician Progress [id number] for patient careSPENCERJacob LoydBvmqgWBBHACHINXJL7316-17-22C04:46:50 Adalberto Nicholas ST[facility] 2021-08-15 23:01:00 [id number] VVCFtqGqPaNSvs5As /1F+v124BWE4loMWyMtDZANhvgFCphtB8Qz1q Tn2147-77-37N41:01:00[facility] Name: SALLY MAGAÑA [address] : 1945, Age: 76, Sex: F [place] [address] Unit #: [id number], Status: DIS IN [phone] Location: [facility] Report Dict Dr.: Imer Angel Aden Admission Date: 08/15/21 Report #: [id number] Discharge Date: 08/20/21 CC: Family Medicine H P - History of Present Illness Chief Complaint: AMS s/p fall History of Present Illness: Patient is a 76 y.o. female with PMH of HTN, DM, Chronic back pain, and heart valve replacement. Thepatient arrived by EMS after a fall at [facility]. The patient was a very poor historian and had a fullworkup in the ER. The patient was unable to give any history due to AMS. Patient was having visual hallucinations and delusions. The patient was seeing snakes on the ground and thought she was in a grocery store. The patient arrived to the ER in stable condition. The patient was found to have a small contusion on left forearm and small laceration on left upper lip, as well as mild contusion toback of head. The CT head/neck negative. The patient was found to have a possible RCC on CT scan of abdomen pelvis but no other pathology noted. The patient was AAO to self only. The patient did not know where she was or why she was in the hospital. The patients mental state was severely altered. Unsure of patients baseline at the moment but through chart checking, the patient has no psych history noted or any presentation like this before. The patient did not know any phone numbers that we could call for more information. The patient was given 5mg of haldol in ER due to patient being combative with staff. The patient calmed down after medication administered and transported to room 3338. ED Course: The patient was given 5mg of haldol. CT head, neck, abdomen/pelvis performed; TSH, UDS, blood alcohol, CBC, CMP performed. - Allergies/Adverse Reactions Allergies Allergy/AdvReac Type Severity Reaction Status Date / Time No Allergy Information Allergy Verified 08/16/21 04:50 Available - Home Medications Medication Instructions Recorded Confirmed Type BuPROPion XL [Wellbutrin XL] 150 mg PO DAILY 08/16/21 08/16/21 History Meclizine HCl 25 mg PO TID 08/16/21 08/16/21 History Pravastatin Sodium 20 mg PO HS 08/16/21 08/16/21 History Venlafaxine HCl [Venlafaxine HCl 150 mg PO DAILY 08/16/21 08/16/21 History ER] metFORMIN [Glucophage] 500 mg PO BID-WM 08/16/21 08/16/21 History Acetaminophen [Tylenol Regular 650 mg PO Q8H PRN #30 tab 08/20/21 Rx Strength] Acetaminophen [Tylenol Suppository] 650 mg WV Q8HR supp 08/20/21 Rx - History PMHx: HTN, DM2, Chronic back pain, heart valve replacement PSHx: eye surgery, heart valve replacement, tonsillectomy FHx:non-contributory Social: unable to assess due to patients mental status All history taken from previous medical records; patient unable to give information due to mental status. - Review of Systems ROS unobtainable: due to mental status - Vital signs BP: [105/66] HR: [94] RR: [18] Tmax: [98.1] Pox: [92]% on [RA] Wt: [68.492kg] - Physical Exam Constitutional: other -Constitutional: AMS; AAO to self only, possibly concussed, anxious HEENT: EOMI, conjunctiva clear, grossly normal hearing, other (contusion to back of head, swelling/laceration on left upper lip, contusion on forearms bilaterally) Neck: supple, FROM Chest: no-tender to palpation, no lesions Heart: pulses present, no edema, other (Systolic and diastolic murmur noted on exam.) Lungs: CTAB, no respiratory distress, good air movement Abdomen: soft, non-tender, bowel sounds present Musculoskeletal: normal structure, normal tone, ROM grossly normal Neurological: other (unable to fully assess due to patient mental status; will reassess when patient is more oriented; patient able to move all extremities and able to ambulate on her own.) Skin: other (mild brusing on forearms bilaterally) Heme/Lymphatic: no petechia, no LAD Psychiatric: other (Patient AAOx1, patient does not have good judgement or insight; patient very confused.) FMR H P: Results - Labs Result Diagrams: 08/16/21 05:31 08/16/21 05:31 Lab results: WBC 9.0 thou/uL (4.8-10.8) 08/15/21 14:51 Hgb 12.4 g/dL (12.0-16.0) 08/15/21 14:51 Hct 36.2 % (36.0-47.0) 08/15/21 14:51 MCV 86.7 fL (78.0-98.0) 08/15/21 14:51 Plt Count 152 thou/uL (130-400) 08/15/21 14:51 Neutrophils % 73.8 % (42.0-75.0) 08/15/21 14:51 Sodium 140 mmol/L (136-145) 08/15/21 14:51 Potassium 4.4 mmol/L (3.5-5.1) 08/15/21 14:51 Chloride 109 mmol/L (98-107) H 08/15/21 14:51 Carbon Dioxide 22 mmol/L (23-31) L 08/15/21 14:51 BUN 25 mg/dL (9.8-20.1) H 08/15/21 14:51 Creatinine 1.04 mg/dL (0.6-1.1) 08/15/21 14:51 Glucose 79 mg/dL (83-110) L 08/15/21 14:51 Lactic Acid 0.9 mmol/L (0.5-2.2) 08/15/21 14:51 Calcium 8.7 mg/dL (7.8-10.44) 08/15/21 14:51 Total Bilirubin 0.5 mg/dL (0.2-1.2) 08/15/21 14:51 AST 29 U/L (5-34) 08/15/21 14:51 ALT 27 U/L (8-55) 08/15/21 14:51 Alkaline Phosphatase 53 U/L (40-110) 08/15/21 14:51 CK-MB (CK-2) 1.4 ng/mL (0-6.6) 08/15/21 14:51 Serum Total Protein 6.4 g/dL (5.8-8.1) 08/15/21 14:51 Albumin 3.7 g/dL (3.4-4.8) 08/15/21 14:51 Urine Ketones Trace mg/dL (Negative) A 08/15/21 18:55 Urine Blood Negative (Negative) 08/15/21 18:55 Urine Nitrite Negative (Negative) 08/15/21 18:55 Ur Leukocyte Esterase Negative Tariq/uL (Negative) 08/15/21 18:55 - EKG Interpretation EKG: unable to be obtained due to patient being non-cooperative due to AMS; will reobtain once patient is more oriented. - Radiology Interpretation CT scan - abdomen Status: report reviewed by me (possibility of RCC. Recommend dedicated multiphase CT of abdomen with and without contrast, non emergent. Cholelithiasis without acute cholecystitis. severe lumbar spondylosis) CT scan - head Status: report reviewed by me (Negative; NAF noted; no bleed, no fractures) FMR H P: A/P - Plan Encephalopathy 2/2 concussion vs. paraneoplastic syndrome vs. infection - etiology not yet known - UA negative, CT head and neck were negative, CBC and CMP WNL - possible RCC found on CT abdomen and pelvis; possible paraneoplastic syndrome - murmur noted on physical exam; need to r/o endocarditis - BCx pending and Echo ; patient has hx of valvular replacement (unknown which valve and when). - patient s/p fall could possibly have TBI or be concussed; will continue to monitor - patient has no previous psych history; cannot rule out however visual hallucinations and delusional thoughts - MR consulted; will appreciate more insight into this matter; awaiting recs Indeterminant trop -resolved -unable to obtain EKG earlier due to AMS and patient non-cooperative; will try again once patient more oriented. Mass of right kidney possibly RCC -need to further evaluate -new diagnosis to patient Cholelithiasis without cholecystitis. - stable; asymptomatic - CTM Fluids: SL Diet: HH VTE: SCD's Code: Full Disposition: Observation; awaiting [facility] recs; will continue to do further work up to find source of patients AMS. FMR H P: Upper Level - Plan Date/Time: 08/15/21 2301 1. Encephalopathy (etiology unknown) - CT head and face no acute findings, old R sided carlin hole. - CT abd pelvis: R renal mass likely renal cell carcinoma. - CBC and CMP wnl - DDx: metabolic source with infection, r/o endocarditis, toxic, traumatic brain injury/concussion, psych disturbance. Due to global disturbance, less likely cause if CVA vs TIA. - Procal, CXR, Blood ccx X2, echo, mag, phos, ammonia fro further eval of etiology of encephalopathy. 2. Hx of Bioprosthetic (porcine) heart valve replacement - pt unsure which valve. - due to encephalopathy, poor historian. 3. Delusional thoughts and visual hallucinations - [facility] consulted , appreciate diagnostic expertise. 4. Indeterminant trop- resolved - Trop 0.039, and then down trended to less than 0.010 - EK. Exophytic mass R kidney possible RCC - Radiology recommended multiphase CT of abdomen with and without contrast, renal mass protocol for f/u - new diagnosis 6. Cholelithiasis without cholecystitis. - liver enzymes within nml limits, INR 1.1, T bili 0.5 7.0 Hx of R hemidiaphragm elevation- chronic - present on imaging today as well as 2012 I, Megan Millan, have evaluated this patient and agree with findings/plan as outlined by chief internal auditor resident. Pertinent changes/additions are listed here. Addendum - Attending - Attending Attestation Date/Time: 09/15/21726 I personally evaluated the patient and discussed the management with Dr. Angel on 08/15/21 I agree with the History, Examination, Assessment and Plan documented above with any addition or exceptions noted below. <Electronically signed by Imer Angel MD> 08/16/21723 <Electronically signed by Carlos Mittal MD> 09/15/21743 <Electronically signed by Carlos Mittal MD> 09/15/2144 CNConsultationLeilani [id number]: [id number] for patient HosseinShivaKennedy [id number] 8 Imer Angel [facility]
--- NOTE | 2024-05-19 08:01 | RAD REPORT ---
EXAM DESCRIPTION: CT - Head C Spine Cap Wo Con - 05/19/2024 7:33 am CLINICAL HISTORY: Trauma, head and neck injury. Chest, abdomen and pelvis pain. Fall COMPARISON: <Comparisons> TECHNIQUE: CT head without contrast. CT cervical spine without contrast with coronal and sagittal reformatted images. CT chest, abdomen and pelvis without contrast with coronal and sagittal reformatted images of the spi ne. All CT scans are performed using dose optimization technique as appropriate and may include automated exposure control or mA/KV adjustment according to patient size. FINDINGS: CT HEAD WITHOUT CONTRAST: No intracranial hemorrhage, hydrocephalus or extra-axial fluid collection. Moderate generalized brain atrophy. No areas of brain edema or midline shift. The paranasal sinuses and mastoids are clear. The calvarium is intact. CT CERVICAL SPINE WITHOUT CONTRAST: No fracture or subluxation. Mild to moderate lower cervical degenerative changes. The prevertebral so ft tissues are normal in thickness.Bilateral carotid atherosclerosis. CT CHEST, ABDOMEN, PELVIS WITHOUT CONTRAST: NOTE: Lack of contrast is a significant limitation in the assessment of trauma related findings. Spec ifically, solid organ, vascular and bowel evaluation is significantly limited. There is mild linear atelectasis in the right lung base.No focal infiltrate detected. Elevated right hemidiaphragm is present.No pneumothorax or pericardial/pleural fluid. No evidence of intra-abdominal visceral injury, free fluid or free air is seen within the above detai led limitations. Cholelithiasis. Significant stool is retained throughout the colon. Advanced dextroscoliosis of lumbar spine is present. No fractures. IMPRESSION: Negative for acute traumatic findings within the above detailed limitations.
--- NOTE | 2024-05-19 08:14 | EDPHYS ---
Physician Documentation [facility] Name: Alberta Wise Age: 79 yrs Sex: Female : 1945 Arrival Date: 05/19/2024 Time: 06:42 Bed 4 Private MD: MICHELLE Physician Robert Schofield HPI: 05/19 07:01 This 79 yrs old Female presents to ER via Unassigned with complaints of fall, dwayne out of bed, hit head, no other complaint. 07:01 The patient or guardian reports pain, swelling, tenderness. The complaints affect the dwayne right side of the back of head. Context of injury: The problem was sustained at a detention or assisted living facility. Onset: The symptoms/episode began/occurred just prior to arrival, this morning. Associated signs and symptoms: The patient has no apparent associated signs or symptoms, Loss of consciousness: This patient did not experience any loss of consciousness. Details of fall: The patient fell from a height, off furniture, approximately 2 feet. Associated injuries: The patient sustained injury to the head. Severity of symptoms: At their worst the symptoms were mild, in the emergency department the symptoms are unchanged. Historical: - Allergies: 07:15 No Known Allergies; pc2 - Home Meds: 07:16 atorvastatin 10 mg oral tablet [Active]; Effexor XR 150 mg Oral Capsule, ER 24 hr pc2 [Active]; Lasix 20 mg Oral tablet [Active]; lisinopril 2.5 mg Oral tablet [Active]; Remeron 30 mg Oral tablet [Active]; tolterodine 4 mg oral Capsule, ER 24 hr [Active]; ascorbic acid (vitamin C) 500 mg capsule [Active]; gabapentin 100 mg oral capsule [Active]; metformin 1,000 mg Oral tablet [Active]; Namenda Titration Shree oral 10 [Active]; acetaminophen-codeine 300-60 mg Oral tablet [Active]; - PMHx: 07:16 Dementia; Diabetes mellitus; Congestive heart failure; pc2 - Immunization history:: Adult Immunizations unknown. - Infectious Disease History:: Denies. - Immunization history: Last tetanus immunization: unknown. - Family history:: not pertinent. - Social history:: Smoking status: Patient denies any tobacco usage or history of. ROS: 07:05 Constitutional: Negative for fever, chills, and weight loss, Eyes: Negative for injury, dwayne pain, redness, and discharge, ENT: Negative for injury, pain, and discharge, Neck: Negative for injury, pain, and swelling, Cardiovascular: Negative for chest pain, palpitations, and edema, Respiratory: Negative for shortness of breath, cough, wheezing, and pleuritic chest pain, Abdomen/GI: Negative for abdominal pain, nausea, vomiting, diarrhea, and constipation, Back: Negative for injury and pain, : Negative for injury, bleeding, discharge, and swelling, MS/Extremity: Negative for injury and deformity, Skin: Negative for injury, rash, and discoloration, Psych: Negative for depression, anxiety, suicide ideation, homicidal ideation, and hallucinations, Allergy/Immunology: Negative for hives, rash, and allergies, Endocrine: Negative for neck swelling, polydipsia, polyuria, polyphagia, and marked weight changes, Hematologic/Lymphatic: Negative for swollen nodes, abnormal bleeding, and unusual bruising, 07:05 Neuro: Positive for headache, 07:53 : Negative for urinary symptoms, urinary frequency, small amounts, hematuria, burning dwayne with urination, difficulty urinating, foul smelling urine, Exam: 07:05 Constitutional: This is a well developed, well nourished patient who is awake, alert, dwayne and in no acute distress. Eyes: Pupils equal round and reactive to light, extra-ocular motions intact. Lids and lashes normal. Conjunctiva and sclera are non-icteric and not injected. Cornea within normal limits. Periorbital areas with no swelling, redness, or edema. ENT: Nares patent. No nasal discharge, no septal abnormalities noted. Tympanic membranes are normal and external auditory canals are clear. Oropharynx with no redness, swelling, or masses, exudates, or evidence of obstruction, uvula midline. Mucous membranes moist. Neck: Trachea midline, no thyromegaly or masses palpated, and no cervical lymphadenopathy. Supple, full range of motion without nuchal rigidity, or vertebral point tenderness. No Meningismus. Chest/axilla: Normal chest wall appearance and motion. Nontender with no deformity. No lesions are appreciated. Cardiovascular: Regular rate and rhythm with a normal S1 and S2. No gallops, murmurs, or rubs. Normal PMI, no JVD. No pulse deficits. Respiratory: Lungs have equal breath sounds bilaterally, clear to auscultation and percussion. No rales, rhonchi or wheezes noted. No increased work of breathing, no retractions or nasal flaring. Abdomen/GI: Soft, non-tender, with normal bowel sounds. No distension or tympany. No guarding or rebound. No evidence of tenderness throughout. Back: No spinal tenderness. No costovertebral tenderness. Full range of motion. Female : Normal external genitalia. Skin: Warm, dry with normal turgor. Normal color with no rashes, no lesions, and no evidence of cellulitis. MS/ Extremity: Pulses equal, no cyanosis. Neurovascular intact. Full, normal range of motion. Neuro: Awake and alert, GCS 15, oriented to person, place, time, and situation. Cranial nerves II-XII grossly intact. Motor strength 5/5 in all extremities. Sensory grossly intact. Cerebellar exam normal. Normal gait. Psych: Awake, alert, with orientation to person, place and time. Behavior, mood, and affect are within normal limits. 07:05 Head/face: Noted is contusion, that is superficial, of the right side of the back of head, hematoma, that is mild, swelling, that is mild, of the right side of the back of head, Vital Signs: 07:12 BP 158 / 84; Pulse 78; Resp 16; Temp 97; Pulse Ox 96% on R/A; Pain 5/10; pc2 08:30 BP 138 / 78; Pulse 65; Resp 18; Temp 97.9; Pulse Ox 99% on R/A; ph 07:12 Pain Scale: Adult pc2 Marcelo Coma Score: 07:01 Eye Response: spontaneous(4). Motor Response: obeys commands(6). Verbal Response: dwayne oriented(5). Total: 15. 07:04 Eye Response: spontaneous(4). Motor Response: obeys commands(6). Verbal Response: dwayne oriented(5). Total: 15. 07:15 Eye Response: spontaneous(4). Motor Response: obeys commands(6). Verbal Response: ph oriented(5). Total: 15. Trauma Score (Adult): 07:15 Eye Response: spontaneous(1); Verbal Response: oriented(1); Motor Response: obeys ph commands(2); Systolic BP: > 89 mm Hg(4); Respiratory Rate: 10 to 29 per min(4); Marcelo Score: 15; Trauma Score: 12 MDM: 07:00 Patient medically screened. [facility] 07:04 Differential diagnosis: Contusion of Hematoma on head, Intracranial bleed- Concussion dwayne without LOC. cerebral contusion. Data reviewed: vital signs, nurses notes. Consideration of Admission/Observation Escalation of care including admission/observation considered. I considered the following discharge prescriptions or medication management in the emergency department Medications were administered in the Emergency Department. See JAN. 05/19 06:52 Order name: CT Traumagram (Head C Spine CAP wo con) vc1 Administered Medications: No medications were administered Disposition Summary: 05/19/24 08:13 Discharge Ordered Notes: Location: Home dwayne Problem: new dwayne Symptoms: have improved dwayne Condition: Stable dwayne Diagnosis - Fall (on) (from) other stairs and steps - bed dwayne - Unspecified injury of head, initial encounter - right pareital hematoma dwayne Followup: dwayne - With: Private Physician - When: 2 - 3 days - Reason: Recheck today's complaints, Continuance of care, Re-evaluation by your physician Discharge Instructions: - Discharge Summary Sheet dwayne - Head Injury, Adult dwayne - Fall Prevention in the Home, Adult dwayne - Fall Prevention in the Home, Adult, [id number] dwayne - Head Injury, Adult, [id number] dwayne Forms: - Medication Reconciliation Form dwayne - Antibiotic Education dwayne - Prescription Opioid Use dwayne - Patient Portal Instructions dwayne - Leadership Thank You Letter dwayne Signatures: Dispatcher [employer] EDMS Robert Schofield MD MD cha Hall, Patricia, RN RN Edwige Gallegos, RN RN pc2 Corrections: (The following items were deleted from the chart) 06:53 06:53 Head C Spine Cap Wo Con+CT.RAD.BRZ ordered. EDWV EDMS 07:21 07:16 PMHx: Alzheimer's disease; pc2 pc2
--- NOTE | 2024-05-19 08:14 | ER ---
Nurse's Notes [facility] Name: Alberta Wise Age: 79 yrs Sex: Female : 1945 Arrival Date: 05/19/2024 Time: 06:42 Bed 4 Private MD: Diagnosis: Fall (on) (from) other stairs and steps-bed;Unspecified injury of head, initial encounter-right pareital hematoma Presentation: 05/19 07:12 Chief complaint: EMS states: Fell and hit head. Found at 0509, staff unsure how long pc2 down. Coronavirus screen: At this time, the client does not indicate any symptoms associated with coronavirus-19. Ebola Screen: No symptoms or risks identified at this time. Initial Sepsis Screen: Does the patient meet any 2 criteria? No. Patient's initial sepsis screen is negative. Does the patient have a suspected source of infection? No. Patient's initial sepsis screen is negative. Risk Assessment: Do you want to hurt yourself or someone else? Patient reports no desire to harm self or others. Onset of symptoms was May 19, 2024. Care prior to arrival: Cervical collar in place. Mechanism of Injury: Fall from standing position. 07:12 Method Of Arrival: EMS: [facility] pc2 07:12 Acuity: KAREN 3 pc2 07:15 Mechanism of Injury: Fall from standing position. Trauma event details: Injury occurred in the [facility], Injury occurred: at home. Injury occurred: May 19, 2024. 07:15 Care prior to arrival: None. Trauma Activation: Not Applicable Physician: ED Physician; Name: ; Notified At: ; Arrived At: Physician: General Surgeon; Name: ; Notified At: ; Arrived At: Physician: Radiology; Name: ; Notified At: ; Arrived At: Physician: Respiratory; Name: ; Notified At: ; Arrived At: Physician: Lab; Name: ; Notified At: ; Arrived At: Historical: - Allergies: 07:15 No Known Allergies; pc2 - Home Meds: 07:16 atorvastatin 10 mg oral tablet [Active]; Effexor XR 150 mg Oral Capsule, ER 24 hr pc2 [Active]; Lasix 20 mg Oral tablet [Active]; lisinopril 2.5 mg Oral tablet [Active]; Remeron 30 mg Oral tablet [Active]; tolterodine 4 mg oral Capsule, ER 24 hr [Active]; ascorbic acid (vitamin C) 500 mg capsule [Active]; gabapentin 100 mg oral capsule [Active]; metformin 1,000 mg Oral tablet [Active]; Namenda Titration Shree oral 10 [Active]; acetaminophen-codeine 300-60 mg Oral tablet [Active]; - PMHx: 07:16 Dementia; Diabetes mellitus; Congestive heart failure; pc2 - Immunization history:: Adult Immunizations unknown. - Infectious Disease History:: Denies. - Immunization history: Last tetanus immunization: unknown. - Family history:: not pertinent. - Social history:: Smoking status: Patient denies any tobacco usage or history of. Screenin:51 [facility] ED Fall Risk Assessment (Adult) History of falling in the last 3 months, ph including since admission Yes- single mechanical fall (1 pt) Confusion or Disorientation Yes (5 pts) Intoxicated or Sedated No (0 pts) Impaired Gait No (0 pts) Mobility Assist Device Used Yes (1 pt) Altered Elimination Yes (1 pt) Score/Fall Risk Level 3 or more points = High Risk Oriented to surroundings, Maintained a safe environment, Hourly rounding (assess needs \T\ fall precautionary measures) done, Used ambulatory aids as needed (educated on \T\ assisted with). Abuse screen: Denies threats or abuse. Has been threatened or abused. Nutritional screening: No deficits noted. Tuberculosis screening: No symptoms or risk factors identified. Primary Survey: 07:30 NO uncontrolled hemorrhage observed. A: The client is awake and alert. The airway is ph patent. Breathing/Chest: Spontaneous respiratory effort, equal unlabored respirations, breath sounds clear bilaterally, regular pattern, symmetrical chest rise and fall. Circulation: No external hemorrhage present. Regular and strong central pulse, skin warm/dry/normal color. Disability Pupils are equal, round, reactive to light and accommodation. Exposure/Environment: A warming method has been applied: A warm blanket has been provided to the patient. 09:00 Reassessment Alertness and Airway: Awake and alert. The airway is patent. Breathing: ph Spontaneous respiratory effort, equal unlabored respirations, breath sounds clear bilaterally, regular pattern with symmetrical chest rise and fall. Circulation: No external hemorrhage noted. Regular and strong central pulse, skin warm/dry/normal color. Disability: Pupils Pupils are equal, round, reactive to light and accomodation. Assessment: 07:30 General: Appears in no apparent distress. comfortable, Behavior is calm, cooperative. ph Pain: Complains of pain in right side of the back of head. Neuro: Level of Consciousness is awake, alert, obeys commands, Oriented to person, place. Cardiovascular: Capillary refill < 3 seconds in bilateral fingers Patient's skin is warm and dry. Derm: Skin is pink, warm \T\ dry. Musculoskeletal: Circulation, motion, and sensation intact. Range of motion: intact in all extremities. 08:50 Reassessment: report called to RN at [facility] [place], stated that she will call back about transport after getting approval. Vital Signs: 07:12 BP 158 / 84; Pulse 78; Resp 16; Temp 97; Pulse Ox 96% on R/A; Pain 5/10; pc2 08:30 BP 138 / 78; Pulse 65; Resp 18; Temp 97.9; Pulse Ox 99% on R/A; ph 07:12 Pain Scale: Adult pc2 [place] Coma Score: 07:01 Eye Response: spontaneous(4). Motor Response: obeys commands(6). Verbal Response: dwayne oriented(5). Total: 15. 07:04 Eye Response: spontaneous(4). Motor Response: obeys commands(6). Verbal Response: dwayne oriented(5). Total: 15. 07:15 Eye Response: spontaneous(4). Motor Response: obeys commands(6). Verbal Response: ph oriented(5). Total: 15. Trauma Score (Adult): 07:15 Eye Response: spontaneous(1); Verbal Response: oriented(1); Motor Response: obeys commands(2); Systolic BP: > 89 mm Hg(4); Respiratory Rate: 10 to 29 per min(4); Marcelo Score: 15; Trauma Score: 12 ED Course: 06:51 Patient arrived in ED. vc1 07:00 Robert Schofield MD is Attending Physician. dwayne 07:15 Triage completed. pc2 07:35 CT Traumagram (Head C Spine CAP wo con) In Process Unspecified. EDMS 08:40 Che Cartagena RN is Primary Nurse. ph 08:50 Arm band placed on Patient placed in an exam room. ph 08:52 Patient has correct armband on for positive identification. Bed in low position. Call ph light in reach. Side rails up X2. Pulse ox on. NIBP on. Door closed. Noise minimized. Warm blanket given. 08:52 O2 via room air. Thermoregulation: warm blanket given to patient. ph 09:59 No provider procedures requiring assistance completed. Patient did not have IV access kc6 during this emergency room visit. Administered Medications: No medications were administered Medication: 08:52 VIS not applicable for this client. ph Intake: 09:00 PO: 0ml; Total: 0ml. ph Output: 09:00 Urine: 0ml; Total: 0ml. ph Outcome: 08:13 Discharge ordered by . dwayne 09:59 Patient left the ED. hb 09:59 Discharged to Rehab Facility kc 09:59 Condition: good 09:59 Discharge instructions given to patient, Instructed on discharge instructions, follow up and referral plans. Demonstrated understanding of instructions, follow-up care, 09:59 Patient's length of stay was not longer than 2 hours. ph Signatures: Dispatcher [employer] EDMS Robert Schofield MD MD cha Hall, Patricia, RN RN ph Colette Carranza, DIGNA RN Bev Mckeon RN RN vc1 Tanvi Castillo RN RN kc6 Edwige Villegas, RN RN pc2 Corrections: (The following items were deleted from the chart) 07:21 07:16 PMHx: Alzheimer's disease; pc2 pc2
[2024-05-19 10:13] VITALS: BP 158/84; TEMP 97; O2SAT 96
== END 2024-05-19 09:59 | disposition home or self-care (01) ==
LOC: ER 06:42
DX: S00.83XA Contusion of other part of head, initial encounter (principal); W06.XXXA Fall from bed, initial encounter
CPT/HCPCS: 70450; 71250; 72125; 99285